=== PATIENT | male | born 1940 | race African-American/Black ===

== ENCOUNTER 2018-02-01 09:17 | Inpatient (IN) | payer MEDICARE, OTHER ==
[~2018-02-01] VITALS: Ht 177.8 cm; Wt 73.0 kg
[~2018-02-01 09:17] MED LIST: ASPI-630 PO; ATRO5DRO SL; DONE10TA7 PO; FOLI1TAB16 PO; HYDR12.58 PO; LEVO50TA5 PO; MEMA1CAP PO; MULT-246 PO; PHEN100C4 PO; PHEN50TA3 PO; TAMS0.4C2 PO
[2018-02-01 10:05] LABS: PROTHROMBIN TIME PATIENT 13.6 SEC (11.7-14.0)
[2018-02-01 10:06] LABS: BASO % 1 % (0-3); EOS % 1 % (0-3); HEMATOCRIT 39.5 % (39.0-53.0); HEMOGLOBIN 13.3 g/dL (13.0-17.5); LYMPH # 1.5 x10^3/uL (1.0-4.8); LYMPH % 30 % (24-48); MEAN CORPUSCULAR HEMOGLOBIN 32 pg (25-35); MEAN CORPUSCULAR HGB CONC 34 g/dL (31-37); MEAN CORPUSCULAR VOLUME 96 fL (79-100); MONO # 0.9 x10^3/uL (0.0-1.1); MONO % 18 % (0-9); NEUT # 2.6 x10^3uL (1.8-7.7); NEUT % 50 % (31-73); PLATELET COUNT 222 x10^3/uL (140-400); RED BLOOD COUNT 4.11 x10^6/uL (4.30-5.70); RED CELL DISTRIBUTION WIDTH 13.3 % (11.5-14.5); WHITE BLOOD COUNT 5.1 x10^3/uL (4.0-11.0)
[2018-02-01 10:10] LABS: CALCIUM 9.4 mg/dL (8.5-10.1); CREATININE 1.1 mg/dL (0.7-1.3); GFR 78.7; POTASSIUM 3.9 mmol/L (3.5-5.1)
[2018-02-01 10:12] LABS: BILIRUBIN,URINE NEGATIVE (NEG); CLARITY,URINE CLEAR; COLOR,URINE YELLOW; NITRITE,URINE POSITIVE (NEG); PH,URINE 5.5; PROTEIN,URINE NEGATIVE (NEG-TRACE)
[2018-02-01 10:16] LABS: ALBUMIN 3.4 g/dL (3.4-5.0); ALBUMIN/GLOBULIN RATIO 0.7 (1.0-1.7); MAGNESIUM 1.8 mg/dL (1.8-2.4); TOTAL BILIRUBIN 0.5 mg/dL (0.2-1.0); TOTAL PROTEIN 8.4 g/dL (6.4-8.2)
[2018-02-01 10:29] LABS: CREATINE KINASE 69 U/L (39-308)
--- NOTE | 2018-02-01 10:33 | RAD ---
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 Exposure: One or more of the following individualized dose reduction techniques were utilized for this examination: 1. Automated exposure control 2. Adjustment of the mA and/or kV according to patient size 3. Use of iterative reconstruction technique. Findings: No acute intracranial hemorrhage is identified. There is again left frontal craniectomy defect and left frontal betty hole. There is again right transfrontal shunt, tip terminating near the midline in the anterior right lateral ventricle. There is similar mild third ventriculomegaly, also ex vacuo dilatation of the frontal horns bilaterally greater on the left as seen previously. There are again large areas of encephalomalacia with cortical involvement of the bilateral frontal lobes, also of the right temporal tip unchanged. There is also old lacunar infarct of the left anne radiata extending to basal ganglia and also the anterior right basal ganglia also unchanged. No acute intracranial hemorrhage is identified. There is again [id number] infratentorial involutional change. There is mild deviation of the septum pellucidum to the right as seen previously. Visualized paranasal sinuses are mostly aerated other than negligible patchy ethmoid mucosal thickening. Mastoid air cells are aerated. There is atherosclerotic calcification of the carotid siphons bilaterally. Impression: 1. Intracranial findings as stated are similar compared with the 2015 exam, large areas of encephalomalacia of the bilateral frontal lobes, also of the right temporal tip with cortical involvement. Electronically signed by: Chuck Hinkle MD (02/01/2018 10:30 AM) [id number]
[2018-02-01 10:37] LABS: WBC,URINE TNTC /HPF (0-4)
[2018-02-01 10:38] LABS: BACTERIA,URINE MODERATE /HPF (0-FEW); SQUAMOUS EPITHELIAL CELL,UR OCC /LPF
[2018-02-01 11:06] LABS: % BASOS 1 % (0-3); % LYMPHS 31 % (24-48); % MONOS 11 % (0-10); % SEGS 57 % (35-66)
[2018-02-01 11:07] LABS: PLT ESTIMATE ADEQUATE (ADEQUATE)
--- NOTE | 2018-02-01 11:19 | EKG ---
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
[2018-02-01] MEDS ORDERED: cefTRIAXone IV Push 1 GM VIAL. IVP ONE (11:45)
--- NOTE | 2018-02-01 11:50 | PHYS DOC ---
Past Medical History Past Medical History: Hypertension, Hypothyroid, UTI Additional Past Medical Histor: CV disease,salivary disorder,cognitive deficit, epilepsy,dementia Past Surgical History: Other Additional Past Surgical Histo: "HEAD SGRY" Alcohol Use: Heavy Drug Use: None Adult General Chief Complaint Chief Complaint: SEIZURE HPI HPI Patient is a 77 year old was brought here from the retirement due to concern for UTI symptom, because seizure activity. Patient has history of seizure disorder, he is on Keppra 750 twice a day. Patient had been having frequent seizure activity at the retirement, he was on 500 mg of Keppra twice a day, his Keppra level was checked recently. And it was 25. His Keppra dose was increased to 750 twice a day yesterday. He had his morning dose of Keppra already. Review of Systems Review of Systems Constitutional: Denies fever or chills [] Eyes: Denies change in visual acuity, redness, or eye pain [] HENT: Denies nasal congestion or sore throat [] Respiratory: Denies cough or shortness of breath [] Cardiovascular: No additional information not addressed in HPI [] GI: Denies abdominal pain, nausea, vomiting, bloody stools or diarrhea [] : frequent urination. Musculoskeletal: Denies back pain or joint pain [] Integument: Denies rash or skin lesions [] Neurologic: Positive for seizure activity Endocrine: Denies polyuria or polydipsia [] All other systems were reviewed and found to be within normal limits, except as documented in this note. Current Medications Current Medications Current Medications Medications (Trade) Dose Ordered Sig/Rebekah Start Time Stop Time Status Last Admin Dose Admin Ceftriaxone Sodium (Rocephin) 1 gm 1X ONCE 02/01/18 11:45 02/01/18 11:46 DC 02/01/18 12:27 1 GM Levetiracetam 1000 mg/Dextrose 110 ml @ 440 mls/hr 1X ONCE 02/01/18 12:00 02/01/18 12:00 DC Lorazepam (Ativan) 2 mg STK-MED ONCE 02/01/18 09:35 02/01/18 09:36 DC Ondansetron HCl (Zofran) 4 mg PRN Q8HRS PRN 02/01/18 12:30 02/02/18 12:29 Allergies Allergies Allergies Coded Allergies Type Severity Reaction Last Updated Verified Sulfa (Sulfonamide Antibiotics) Allergy Intermediate 11/29/13 No Physical Exam Physical Exam Constitutional: Well developed, well nourished, patient had several episode of focal seizure activities in the ER when he became unresponsive and his eye was deviated to the left side. HENT: Normocephalic, atraumatic, bilateral external ears normal, oropharynx moist, no oral exudates, nose normal. [] Eyes: PERRLA, EOMI, conjunctiva normal, no discharge. [] Neck: Normal range of motion, no tenderness, supple, no stridor. [] Cardiovascular:Heart rate regular rhythm, no murmur [] Lungs & Thorax: Bilateral breath sounds clear to auscultation [] Abdomen: Bowel sounds normal, soft, no tenderness, no masses, no pulsatile masses. [] Skin: Warm, dry, no erythema, no rash. [] Back: No tenderness, no CVA tenderness. [] Extremities: atraumatic, no swelling. Neurologic:Patient was awake, alert, answered questions appropriately. Psychologic: Affect normal, judgement normal, mood normal. [] Current Patient Data Vital Signs Vital Signs Date Time Temp Pulse Resp B/P (MAP) Pulse Ox O2 Delivery O2 Flow Rate FiO2 02/01/18 09:17 96.6 84 21 153/76 (101) 97 2.0 96.6 Lab Values Laboratory Tests Test 02/01/18 09:30 02/01/18 09:57 White Blood Count 5.1 x10^3/uL (4.0-11.0) Red Blood Count 4.11 x10^6/uL (4.30-5.70) L Hemoglobin 13.3 g/dL (13.0-17.5) Hematocrit 39.5 % (39.0-53.0) Mean Corpuscular Volume 96 fL (79-100) Mean Corpuscular Hemoglobin 32 pg (25-35) Mean Corpuscular Hemoglobin Concent 34 g/dL (31-37) Red Cell Distribution Width 13.3 % (11.5-14.5) Platelet Count 222 x10^3/uL (140-400) Neutrophils (%) (Auto) 50 % (31-73) Lymphocytes (%) (Auto) 30 % (24-48) Monocytes (%) (Auto) 18 % (0-9) H Eosinophils (%) (Auto) 1 % (0-3) Basophils (%) (Auto) 1 % (0-3) Neutrophils # (Auto) 2.6 x10^3uL (1.8-7.7) Lymphocytes # (Auto) 1.5 x10^3/uL (1.0-4.8) Monocytes # (Auto) 0.9 x10^3/uL (0.0-1.1) Eosinophils # (Auto) 0.0 x10^3/uL (0.0-0.7) Basophils # (Auto) 0.0 x10^3/uL (0.0-0.2) Segmented Neutrophils % 57 % (35-66) Lymphocytes % 31 % (24-48) Monocytes % 11 % (0-10) H Basophils % 1 % (0-3) Platelet Estimate Adequate (ADEQUATE) Large Platelets Occ Giant Platelets Occ Prothrombin Time 13.6 SEC (11.7-14.0) Prothrombin Time INR 1.1 (0.8-1.1) PTT 35 SEC (24-38) Sodium Level 140 mmol/L (136-145) Potassium Level 3.9 mmol/L (3.5-5.1) Chloride Level 104 mmol/L (98-107) Carbon Dioxide Level 24 mmol/L (21-32) Anion Gap 12 (6-14) Blood Urea Nitrogen 12 mg/dL (8-26) Creatinine 1.1 mg/dL (0.7-1.3) Estimated GFR (Cockcroft-Gault) 78.7 BUN/Creatinine Ratio 11 (6-20) Glucose Level 88 mg/dL (70-99) Calcium Level 9.4 mg/dL (8.5-10.1) Magnesium Level 1.8 mg/dL (1.8-2.4) Total Bilirubin 0.5 mg/dL (0.2-1.0) Aspartate Amino Transferase (AST) 20 U/L (15-37) Alanine Aminotransferase (ALT) 22 U/L (16-63) Alkaline Phosphatase 101 U/L (46-116) Creatine Kinase 69 U/L (39-308) Creatine Kinase MB (Mass) 0.8 ng/mL (0.0-3.6) Creatine Kinase MB Relative Index % (0-4) Troponin I Quantitative < 0.017 ng/mL (0.000-0.055) Total Protein 8.4 g/dL (6.4-8.2) H Albumin 3.4 g/dL (3.4-5.0) Albumin/Globulin Ratio 0.7 (1.0-1.7) L Urine Collection Type U cath Urine Color Yellow Urine Clarity Clear Urine pH 5.5 Urine Specific [place] 1.020 Urine Protein Negative mg/dL (NEG-TRACE) Urine Glucose (UA) Negative mg/dL (NEG) Urine Ketones (Stick) Negative mg/dL (NEG) Urine Blood Large (NEG) Urine Nitrite Positive (NEG) Urine Bilirubin Negative (NEG) Urine Urobilinogen Dipstick 1.0 mg/dL (0.2 mg/dL) Urine Leukocyte Esterase Large (NEG) Urine RBC 3-5 /HPF (0-2) Urine WBC Tntc /HPF (0-4) Urine Squamous Epithelial Cells Occ /LPF Urine Bacteria Moderate /HPF (0-FEW) Laboratory Tests 02/01/18 09:30 Laboratory Tests 02/01/18 09:30 EKG EKG EKG: SINUS RHYTHM, RATE OF 82 BPM, NO STEMI. Radiology/Procedures Radiology/Procedures [][facility] [address] [place] [address] IMAGING REPORT Signed PATIENT: SHIMA CANTU ACCOUNT: [id number] : 1940 LOCATION: ER AGE: 77 SEX: M EXAM STATUS: REG ER ORD. PHYSICIAN: BERT AQUINO DO REASON: RECURRENT SEIZURE, HX OF HOG COUNTER SHUNT PROCEDURE: CT HEAD WO CONTRAST CT HEAD WO CONTRAST History: Recurrent seizures, history HOG COUNTER shunt Comparison: February 28, 2014 Technique: Noncontrast CT imaging was performed of the head. Exposure: One or more of the following individualized dose reduction techniques were utilized for this examination: 1. Automated exposure control 2. Adjustment of the mA and/or kV according to patient size 3. Use of iterative reconstruction technique. Findings: No acute intracranial hemorrhage is identified. There is again left frontal craniectomy defect and left frontal betty hole. There is again right transfrontal shunt, tip terminating near the midline in the anterior right lateral ventricle. There is similar mild third ventriculomegaly, also ex vacuo dilatation of the frontal horns bilaterally greater on the left as seen previously. There are again large areas of encephalomalacia with cortical involvement of the bilateral frontal lobes, also of the right temporal tip unchanged. There is also old lacunar infarct of the left anne radiata extending to basal ganglia and also the anterior right basal ganglia also unchanged. No acute intracranial hemorrhage is identified. There is again [id number] infratentorial involutional change. There is mild deviation of the septum pellucidum to the right as seen previously. Visualized paranasal sinuses are mostly aerated other than negligible patchy ethmoid mucosal thickening. Mastoid air cells are aerated. There is atherosclerotic calcification of the carotid siphons bilaterally. Impression: 1. Intracranial findings as stated are similar compared with the 2015 exam, large areas of encephalomalacia of the bilateral frontal lobes, also of the right temporal tip with cortical involvement. Electronically signed by: Chuck Hinkle MD (02/01/2018 10:30 AM) [id number] Course & Med Decision Making Course & Med Decision Making Pertinent Labs and Imaging studies reviewed. (See chart for details) [] Dragon Disclaimer Dragon Disclaimer This electronic medical record was generated, in whole or in part, using a voice recognition dictation system. Departure Departure Impression: Primary Impression: Seizure Additional Impression: UTI (urinary tract infection) Disposition: ADMITTED INPATIENT Admitting Physician: Rosalinda Reed Condition: STABLE Referrals: ROSALINDA REED MD (PCP) Problem Qualifiers BERT AQUINO DO Feb 01, 2018 11:50
[2018-02-01] MEDS ORDERED: levETIRAcetam 1,000 MG in IV DEXTROSE 5% 100ML 100 ML IV ONE (12:00)
[2018-02-01] MEDS ORDERED: ONDANSETRON PF 4 MG/2 ML VIAL. IV PRN (12:30)
[2018-02-01 14:15] VITALS: BP 121/77
[2018-02-01] MEDS ORDERED: GUAI473L15 PO (16:02)
[2018-02-01] MEDS ORDERED: LEVE500T56 PO (16:02)
[2018-02-01] MEDS ORDERED: ACET325T9 PO (16:02)
[2018-02-01] MEDS ORDERED: ACETAMINOPHEN 325 MG TABLET. PO PRN (17:30)
[2018-02-01] MEDS ORDERED: MEMA10TA20 PO (17:43)
[2018-02-01] MEDS ORDERED: GUAI100L12 PO (17:43)
[2018-02-01] MEDS ORDERED: LEVE750T8 PO (17:43)
[2018-02-01] MEDS ORDERED: ERGO500027 PO (17:44)
--- NOTE | 2018-02-01 18:06 | PDOC ---
Provider Note Provider Note Patient seen. History and Physical dictated. See dictation# [id number] ROSALINDA NERI MD Feb 01, 2018 18:06
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
[2018-02-01 19:15] VITALS: BP 86/40
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
[2018-02-01] MEDS ORDERED: IV NORMAL SALINE 500ML BAG 500 ML IV ONE (20:45)
[2018-02-01] MEDS ORDERED: TAMSULOSIN 0.4 MG CAP.ER.24H. PO SCH (21:00)
[2018-02-01] MEDS: MEMANTINE 10 MG TABLET. PO SCH (21:17)
[2018-02-01] MEDS: levETIRAcetam 500 MG TABLET PO SCH (21:17)
[2018-02-01] MEDS: DONEPEZIL HCL 10 MG TABLET. PO SCH (21:17)
[2018-02-01] MEDS: IV NORMAL SALINE 1000ML BAG 1,000 ML IV SCH (22:06)
[2018-02-01 23:15] VITALS: BP 104/83
[2018-02-02] VITALS (20 sets, daily range): BP systolic 90–128; BP diastolic 44–77
[2018-02-02] MEDS ORDERED: IV NORMAL SALINE 500ML BAG 250 ML IV ONE (04:00)
[2018-02-02] MEDS ORDERED: LACOSAMIDE 100 MG in IV DEXTROSE 5% 50 ML IV ONE (04:00)
[2018-02-02] MEDS: LEVOTHYROXINE 50 MCG TABLET PO SCH (06:00)
[2018-02-02] MEDS ORDERED: hydroCHLOROthiazide 12.5 MG CAPSULE PO SCH (09:00)
[2018-02-02] MEDS: FOLIC ACID 1 MG TABLET. PO SCH (09:00)
[2018-02-02] MEDS: levETIRAcetam 500 MG TABLET PO SCH (09:00)
[2018-02-02] MEDS: ASPIRIN CHEWABLE 81 MG TABLET. PO SCH (09:00)
[2018-02-02] MEDS: MULTIVITAMIN with MINERAL TABLET. PO SCH (09:00)
[2018-02-02] MEDS: MEMANTINE 10 MG TABLET. PO SCH ×2 (09:00→22:41)
[2018-02-02] MEDS: LACTOBACILLUS RHAMNOSUS GG 1 CAPSULE. PO SCH ×2 (09:00→22:41)
[2018-02-02 09:27] LABS: CALCIUM 8.7 mg/dL (8.5-10.1); CREATININE 1.2 mg/dL (0.7-1.3); GFR 71.2; MAGNESIUM 1.7 mg/dL (1.8-2.4)
[2018-02-02 09:42] LABS: BASO % 1 % (0-3); EOS # 0.1 x10^3/uL (0.0-0.7); EOS % 1 % (0-3); HEMATOCRIT 36.8 % (39.0-53.0); HEMOGLOBIN 12.5 g/dL (13.0-17.5); LYMPH # 1.2 x10^3/uL (1.0-4.8); LYMPH % 20 % (24-48); MEAN CORPUSCULAR HEMOGLOBIN 33 pg (25-35); MEAN CORPUSCULAR HGB CONC 34 g/dL (31-37); MEAN CORPUSCULAR VOLUME 96 fL (79-100); MONO % 16 % (0-9); NEUT # 3.7 x10^3uL (1.8-7.7); NEUT % 62 % (31-73); PLATELET COUNT 203 x10^3/uL (140-400); RED BLOOD COUNT 3.83 x10^6/uL (4.30-5.70); RED CELL DISTRIBUTION WIDTH 13.2 % (11.5-14.5)
--- NOTE | 2018-02-02 09:50 | RAD ---
CHEST PA LATERAL CLINICAL INDICATION: shunt series COMPARISON: None FINDINGS: Heart is normal in size. Lungs are hyperinflated and hyperlucent. No pneumothorax or pleural effusion. Mild bibasilar interstitial opacities are seen. The tip of the ventricular shunt is seen projecting over the right mediastinal level of T4 vertebral body. Status post ORIF of right clavicle or fracture. Otherwise, visualized bony thorax is within normal limits. IMPRESSION: 1. Findings of COPD. 2. Bibasilar patchy opacities are seen which may be secondary to interstitial infiltrates, subsegmental atelectasis aspiration or or pneumonia. 3. The tip of the ventricular shunt is located in the right aspect of the mid mediastinum at the level of T4 vertebral body. Electronically signed by: Suraj Reed DO (02/02/2018 9:46 AM) [facility]
[2018-02-02] MEDS: LACOSAMIDE 100 MG in IV DEXTROSE 5% 50 ML IV SCH ×2 (09:51→22:01)
[2018-02-02] MEDS: IV NORMAL SALINE 1000ML BAG 1,000 ML IV SCH ×2 (09:52→18:09)
--- NOTE | 2018-02-02 09:53 | RAD ---
Indication: Shunt series TECHNIQUE: AP and lateral views of the skull and KUB. COMPARISON: None FINDINGS: Ventricular peritoneal shunt is seen traversing the right posterolateral neck soft tissue. The proximal tip of the projects at the level of third ventricle. The paranasal sinuses are clear. No abnormally dilated bowel loops. Visualized bones are within normal limits. IMPRESSION: The tip of the ventricular shunt terminates in the mediastinum. Electronically signed by: Suraj Reed DO (02/02/2018 9:48 AM) [facility]
--- NOTE | 2018-02-02 11:11 | PDOC ---
IM PROGRESS NOTES- Subjective Subjective Patient was transferred to ICU because of hypotension and recurrent seizures. Patient was given IV Vimpat yesterday night.. Patient is not responsive verbally this morning although staff said that he did talk to them earlier. Staff feels that they cannot feed the patient and he may not be able to take his medications. His swelling of the lips is improving but they feel that the tongue is still enlarged. Able to get any information from the patient. Objective Vitals Vital Signs Date Time Temp Pulse Resp B/P (MAP) Pulse Ox O2 Delivery O2 Flow Rate FiO2 02/02/18 09:00 73 20 120/55 (76) 94 Nasal Cannula 2.0 02/02/18 08:00 98.4 98.4 Input & Output Intake and Output 02/02/18 07:01 Intake Total 0 ml Balance 0 ml Intake Oral 0 ml # Voids 7 # Bowel Movements 1 Physical Exam Physical Exam GENERAL: The patient is very sleepy, EYES: Partial exam, sleepy, unremarkable. SKIN: Warm and dry. There is no cyanosis. NECK: Decreased range of motion. JVP normal. No thyromegaly. HEENT: Oral cavity: The patient has enlarged hypertrophied lips, especially the lower lips. He has some drooling. His speech is not clear. He has some involuntary abnormal movements of the perioral area. LUNGS: Decreased breath sounds at bases. CARDIOVASCULAR: S1, S2 regular. ABDOMEN: Soft, nontender, bowel sounds present. EXTREMITIES: No edema. CENTRAL NERVOUS SYSTEM: The patient is sleepy, but restless. Moves extremities. No seizure activity noted at this time. He has generalized weakness or residual deficits from previous CVA. Unable to follow all the commands, nonverbal at this time. Labs Laboratory Tests Test 02/01/18 09:30 02/01/18 09:57 02/02/18 04:34 02/02/18 08:40 White Blood Count 5.1 x10^3/uL (4.0-11.0) 6.0 x10^3/uL (4.0-11.0) Red Blood Count 4.11 x10^6/uL (4.30-5.70) 3.83 x10^6/uL (4.30-5.70) Hemoglobin 13.3 g/dL (13.0-17.5) 12.5 g/dL (13.0-17.5) Hematocrit 39.5 % (39.0-53.0) 36.8 % (39.0-53.0) Mean Corpuscular Volume 96 fL (79-100) 96 fL (79-100) Mean Corpuscular Hemoglobin 32 pg (25-35) 33 pg (25-35) Mean Corpuscular Hemoglobin Concent 34 g/dL (31-37) 34 g/dL (31-37) Red Cell Distribution Width 13.3 % (11.5-14.5) 13.2 % (11.5-14.5) Platelet Count 222 x10^3/uL (140-400) 203 x10^3/uL (140-400) Neutrophils (%) (Auto) 50 % (31-73) 62 % (31-73) Lymphocytes (%) (Auto) 30 % (24-48) 20 % (24-48) Monocytes (%) (Auto) 18 % (0-9) 16 % (0-9) Eosinophils (%) (Auto) 1 % (0-3) 1 % (0-3) Basophils (%) (Auto) 1 % (0-3) 1 % (0-3) Neutrophils # (Auto) 2.6 x10^3uL (1.8-7.7) 3.7 x10^3uL (1.8-7.7) Lymphocytes # (Auto) 1.5 x10^3/uL (1.0-4.8) 1.2 x10^3/uL (1.0-4.8) Monocytes # (Auto) 0.9 x10^3/uL (0.0-1.1) 1.0 x10^3/uL (0.0-1.1) Eosinophils # (Auto) 0.0 x10^3/uL (0.0-0.7) 0.1 x10^3/uL (0.0-0.7) Basophils # (Auto) 0.0 x10^3/uL (0.0-0.2) 0.0 x10^3/uL (0.0-0.2) Segmented Neutrophils % 57 % (35-66) Lymphocytes % 31 % (24-48) Monocytes % 11 % (0-10) Basophils % 1 % (0-3) Platelet Estimate Adequate (ADEQUATE) Large Platelets Occ Giant Platelets Occ Prothrombin Time 13.6 SEC (11.7-14.0) Prothromb Time International Ratio 1.1 (0.8-1.1) Activated Partial Thromboplast Time 35 SEC (24-38) Sodium Level 140 mmol/L (136-145) 141 mmol/L (136-145) Potassium Level 3.9 mmol/L (3.5-5.1) 4.0 mmol/L (3.5-5.1) Chloride Level 104 mmol/L (98-107) 107 mmol/L (98-107) Carbon Dioxide Level 24 mmol/L (21-32) 25 mmol/L (21-32) Anion Gap 12 (6-14) 9 (6-14) Blood Urea Nitrogen 12 mg/dL (8-26) 12 mg/dL (8-26) Creatinine 1.1 mg/dL (0.7-1.3) 1.2 mg/dL (0.7-1.3) Estimated GFR (Cockcroft-Gault) 78.7 71.2 BUN/Creatinine Ratio 11 (6-20) Glucose Level 88 mg/dL (70-99) 69 mg/dL (70-99) Calcium Level 9.4 mg/dL (8.5-10.1) 8.7 mg/dL (8.5-10.1) Magnesium Level 1.8 mg/dL (1.8-2.4) 1.7 mg/dL (1.8-2.4) Total Bilirubin 0.5 mg/dL (0.2-1.0) Aspartate Amino Transf (AST/SGOT) 20 U/L (15-37) Alanine Aminotransferase (ALT/SGPT) 22 U/L (16-63) Alkaline Phosphatase 101 U/L (46-116) Creatine Kinase 69 U/L (39-308) Creatine Kinase MB (Mass) 0.8 ng/mL (0.0-3.6) Creatine Kinase MB Relative Index % (0-4) Troponin I Quantitative < 0.017 ng/mL (0.000-0.055) Total Protein 8.4 g/dL (6.4-8.2) Albumin 3.4 g/dL (3.4-5.0) Albumin/Globulin Ratio 0.7 (1.0-1.7) Vitamin B12 Level 621 pg/mL (247-911) Thyroid Stimulating Hormone (TSH) 1.213 uIU/mL (0.358-3.74) Urine Collection Type U cath Urine Color Yellow Urine Clarity Clear Urine pH 5.5 Urine Specific [place] 1.020 Urine Protein Negative mg/dL (NEG-TRACE) Urine Glucose (UA) Negative mg/dL (NEG) Urine Ketones (Stick) Negative mg/dL (NEG) Urine Blood Large (NEG) Urine Nitrite Positive (NEG) Urine Bilirubin Negative (NEG) Urine Urobilinogen Dipstick 1.0 mg/dL (0.2 mg/dL) Urine Leukocyte Esterase Large (NEG) Urine RBC 3-5 /HPF (0-2) Urine WBC Tntc /HPF (0-4) Urine Squamous Epithelial Cells Occ /LPF Urine Bacteria Moderate /HPF (0-FEW) Glucose (Fingerstick) 73 mg/dL (70-99) Laboratory Tests Test 02/02/18 04:34 02/02/18 08:40 Glucose (Fingerstick) 73 mg/dL (70-99) White Blood Count 6.0 x10^3/uL (4.0-11.0) Red Blood Count 3.83 x10^6/uL (4.30-5.70) Hemoglobin 12.5 g/dL (13.0-17.5) Hematocrit 36.8 % (39.0-53.0) Mean Corpuscular Volume 96 fL (79-100) Mean Corpuscular Hemoglobin 33 pg (25-35) Mean Corpuscular Hemoglobin Concent 34 g/dL (31-37) Red Cell Distribution Width 13.2 % (11.5-14.5) Platelet Count 203 x10^3/uL (140-400) Neutrophils (%) (Auto) 62 % (31-73) Lymphocytes (%) (Auto) 20 % (24-48) Monocytes (%) (Auto) 16 % (0-9) Eosinophils (%) (Auto) 1 % (0-3) Basophils (%) (Auto) 1 % (0-3) Neutrophils # (Auto) 3.7 x10^3uL (1.8-7.7) Lymphocytes # (Auto) 1.2 x10^3/uL (1.0-4.8) Monocytes # (Auto) 1.0 x10^3/uL (0.0-1.1) Eosinophils # (Auto) 0.1 x10^3/uL (0.0-0.7) Basophils # (Auto) 0.0 x10^3/uL (0.0-0.2) Sodium Level 141 mmol/L (136-145) Potassium Level 4.0 mmol/L (3.5-5.1) Chloride Level 107 mmol/L (98-107) Carbon Dioxide Level 25 mmol/L (21-32) Anion Gap 9 (6-14) Blood Urea Nitrogen 12 mg/dL (8-26) Creatinine 1.2 mg/dL (0.7-1.3) Estimated GFR (Cockcroft-Gault) 71.2 Glucose Level 69 mg/dL (70-99) Calcium Level 8.7 mg/dL (8.5-10.1) Magnesium Level 1.7 mg/dL (1.8-2.4) Meds Current Medications Acetaminophen (Tylenol) 650 mg PRN Q4HRS PRN PO MILD PAIN / TEMP Last administered on 02/01/18at 21:17; Start 02/01/18 at 17:30 Aspirin (Children'S Aspirin) 81 mg DAILY PO ; Start 02/02/18 at 09:00 Ceftriaxone Sodium (Rocephin) 1 gm 1X ONCE IVP Last administered on at 12:27; Start 02/01/18 at 11:45; Stop 02/01/18 at 11:46; Status DC Ceftriaxone Sodium (Rocephin) 1 gm Q24H IVP ; Start 02/02/18 at 12:00 Donepezil HCl (Aricept) 10 mg QHS PO Last administered on 02/01/18at 21:17; Start 02/01/18 at 21:00 Folic Acid (Folic Acid) 1 mg DAILY PO ; Start 02/02/18 at 09:00 Hydrochlorothiazide (Microzide) 12.5 mg DAILY PO ; Start 02/02/18 at 09:00; Stop 02/02/18 at 09:00; Status DC Lacosamide 100 mg/ Dextrose 60 ml @ 120 mls/hr 1X ONCE IV Last administered on 02/02/18at 03:56; Start 02/02/18 at 04:00; Stop 02/02/18 at 04:29; Status DC Lacosamide 100 mg/ Dextrose 60 ml @ 120 mls/hr BID IV Last administered on at 09:51; Start 02/02/18 at 09:00 Lactobacillus Rhamnosus (Culturelle) 1 cap BID PO ; Start 02/02/18 at 09:00 Levetiracetam (Keppra) 1,000 mg BID PO Last administered on 02/01/18at 21:17; Start 02/01/18 at 21:00 Levetiracetam 1000 mg/Dextrose 110 ml @ 440 mls/hr 1X ONCE IV ; Start at 12:00; Stop 02/01/18 at 12:00; Status DC Levothyroxine Sodium (Synthroid) 50 mcg DAILY06 PO ; Start 02/02/18 at 06:00 Lorazepam (Ativan) 1 mg 1X ONCE IV Last administered on 02/01/18at 13:21; Start 02/01/18 at 13:30; Stop 02/01/18 at 13:31; Status DC Memantine (Namenda) 10 mg BID PO Last administered on 02/01/18at 21:17; Start 02/01/18 at 21:00 Multivitamins (Thera M Plus) 1 tab DAILY PO ; Start 02/02/18 at 09:00 Ondansetron HCl (Zofran) 4 mg PRN Q8HRS PRN IV NAUSEA/VOMITING; Start at 12:30; Stop 02/02/18 at 12:29 Sodium Chloride 250 ml @ 250 mls/hr 1X ONCE IV ; Start 02/02/18 at 04:00; Stop 02/02/18 at 04:59; Status DC Sodium Chloride 500 ml @ 0 mls/hr 1X ONCE IV Last administered on 02/01/18at 20:45; Start 02/01/18 at 20:45; Stop 02/01/18 at 20:46; Status DC Sodium Chloride 1,000 ml @ 100 mls/hr Q10H IV Last administered on 02/02/18at 09:52; Start 02/01/18 at 20:45 Tamsulosin HCl (Flomax) 0.4 mg HS PO Last administered on 02/01/18at 21:17; Start 02/01/18 at 21:00; Stop 02/02/18 at 08:02; Status DC Assessment Assessment 1. Seizure disorder, not controlled. 2. Urinary tract infection. 3. Hypertension. 4. Old cerebrovascular accident. 5. Dementia. 6. Osteoarthritis. 7. Benign prostatic hypertrophy. 8. Hypothyroidism. 9. Hypomagnesemia 10. Acute hypotension likely due to seizures and hypovolemia. PLAN: Keppra dose has been increased to [address] Ibarra for Neurology evaluation and management. Continue IV Rocephin and obtain urine culture. Check labs in a.m. including magnesium level. Continue seizure precautions. Prognosis of this patient is poor due to her multiple medical problems, CT scan of head showed large areas of encephalomalacia of the bilateral frontal lobes, also of the right temporal tip with cortical involvement. There is not new compared to the CAT scan in 2018. For details, please refer to the orders. Hypotension- continue IV fluids. Check for sepsis. Chest x-ray shows bibasilar opacities. Consult . Blood pressure is improving. I will also consult Dr. Solano. Hypoglycemia- glucose is 69. Patient is not on any medications. Continue to monitor blood sugar. 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 Consult Dr. Degroot for neurosurgical evaluation and management. 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 I have asked the staff to call the neurologist again. Prognosis of this patient is poor. Plan Plan For more details regarding further plans, please refer to the orders. ROSALINDA NERI MD Feb 02, 2018 11:11
--- NOTE | 2018-02-02 11:27 | PDOC ---
Infectious Disease Note Vital Sign Vital Signs Vital Signs Date Time Temp Pulse Resp B/P (MAP) Pulse Ox O2 Delivery O2 Flow Rate FiO2 02/02/18 09:00 73 20 120/55 (76) 94 Nasal Cannula 2.0 02/02/18 08:00 98.4 98.4 Labs Lab Laboratory Tests Test 02/02/18 04:34 02/02/18 08:40 Glucose (Fingerstick) 73 mg/dL (70-99) White Blood Count 6.0 x10^3/uL (4.0-11.0) Red Blood Count 3.83 x10^6/uL (4.30-5.70) Hemoglobin 12.5 g/dL (13.0-17.5) Hematocrit 36.8 % (39.0-53.0) Mean Corpuscular Volume 96 fL (79-100) Mean Corpuscular Hemoglobin 33 pg (25-35) Mean Corpuscular Hemoglobin Concent 34 g/dL (31-37) Red Cell Distribution Width 13.2 % (11.5-14.5) Platelet Count 203 x10^3/uL (140-400) Neutrophils (%) (Auto) 62 % (31-73) Lymphocytes (%) (Auto) 20 % (24-48) Monocytes (%) (Auto) 16 % (0-9) Eosinophils (%) (Auto) 1 % (0-3) Basophils (%) (Auto) 1 % (0-3) Neutrophils # (Auto) 3.7 x10^3uL (1.8-7.7) Lymphocytes # (Auto) 1.2 x10^3/uL (1.0-4.8) Monocytes # (Auto) 1.0 x10^3/uL (0.0-1.1) Eosinophils # (Auto) 0.1 x10^3/uL (0.0-0.7) Basophils # (Auto) 0.0 x10^3/uL (0.0-0.2) Sodium Level 141 mmol/L (136-145) Potassium Level 4.0 mmol/L (3.5-5.1) Chloride Level 107 mmol/L (98-107) Carbon Dioxide Level 25 mmol/L (21-32) Anion Gap 9 (6-14) Blood Urea Nitrogen 12 mg/dL (8-26) Creatinine 1.2 mg/dL (0.7-1.3) Estimated GFR (Cockcroft-Gault) 71.2 Glucose Level 69 mg/dL (70-99) Calcium Level 8.7 mg/dL (8.5-10.1) Magnesium Level 1.7 mg/dL (1.8-2.4) CXR 1. Findings of COPD. 2. Bibasilar patchy opacities are seen which may be secondary to interstitial infiltrates, subsegmental atelectasis aspiration or or pneumonia. 3. The tip of the ventricular shunt is located in the right aspect of the mid mediastinum at the level of T4 vertebral body. 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 Chart reviewed in detail. Case discussed with TALENT BUYER. Agree with above plan. WALESKA ORONA APRN Feb 02, 2018 11:27 REJI THORPE MD Feb 02, 2018 20:08
[2018-02-02] MEDS ORDERED: MAGNESIUM SULFATE 2GM 50 ML IV ONE (11:30)
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
[2018-02-02] MEDS ORDERED: cefTRIAXone IV Push 1 GM VIAL. IVP SCH (12:00)
[2018-02-02] MEDS: levETIRAcetam 1,000 MG in IV DEXTROSE 5% 100ML 100 ML IV SCH ×2 (12:22→22:01)
[2018-02-02] MEDS: PIPERACILLIN/TAZOBACTAM 3.375 GM in IV NORMAL SALINE 50ML 50 ML IV SCH ×3 (12:23→23:46)
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
--- NOTE | 2018-02-02 13:09 | EKG ---
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
--- NOTE | 2018-02-02 13:24 | PDOC ---
PULMONARY PROGRESS NOTES Vitals Vital Signs Date Time Temp Pulse Resp B/P (MAP) Pulse Ox O2 Delivery O2 Flow Rate FiO2 02/02/18 13:00 83 13 116/67 (83) 94 Nasal Cannula 2.0 02/02/18 12:00 98.4 98.4 Labs Laboratory Tests Test 02/01/18 09:30 02/01/18 09:57 02/02/18 04:34 02/02/18 08:40 White Blood Count 5.1 x10^3/uL (4.0-11.0) 6.0 x10^3/uL (4.0-11.0) Red Blood Count 4.11 x10^6/uL (4.30-5.70) 3.83 x10^6/uL (4.30-5.70) Hemoglobin 13.3 g/dL (13.0-17.5) 12.5 g/dL (13.0-17.5) Hematocrit 39.5 % (39.0-53.0) 36.8 % (39.0-53.0) Mean Corpuscular Volume 96 fL (79-100) 96 fL (79-100) Mean Corpuscular Hemoglobin 32 pg (25-35) 33 pg (25-35) Mean Corpuscular Hemoglobin Concent 34 g/dL (31-37) 34 g/dL (31-37) Red Cell Distribution Width 13.3 % (11.5-14.5) 13.2 % (11.5-14.5) Platelet Count 222 x10^3/uL (140-400) 203 x10^3/uL (140-400) Neutrophils (%) (Auto) 50 % (31-73) 62 % (31-73) Lymphocytes (%) (Auto) 30 % (24-48) 20 % (24-48) Monocytes (%) (Auto) 18 % (0-9) 16 % (0-9) Eosinophils (%) (Auto) 1 % (0-3) 1 % (0-3) Basophils (%) (Auto) 1 % (0-3) 1 % (0-3) Neutrophils # (Auto) 2.6 x10^3uL (1.8-7.7) 3.7 x10^3uL (1.8-7.7) Lymphocytes # (Auto) 1.5 x10^3/uL (1.0-4.8) 1.2 x10^3/uL (1.0-4.8) Monocytes # (Auto) 0.9 x10^3/uL (0.0-1.1) 1.0 x10^3/uL (0.0-1.1) Eosinophils # (Auto) 0.0 x10^3/uL (0.0-0.7) 0.1 x10^3/uL (0.0-0.7) Basophils # (Auto) 0.0 x10^3/uL (0.0-0.2) 0.0 x10^3/uL (0.0-0.2) Segmented Neutrophils % 57 % (35-66) Lymphocytes % 31 % (24-48) Monocytes % 11 % (0-10) Basophils % 1 % (0-3) Platelet Estimate Adequate (ADEQUATE) Large Platelets Occ Giant Platelets Occ Prothrombin Time 13.6 SEC (11.7-14.0) Prothromb Time International Ratio 1.1 (0.8-1.1) Activated Partial Thromboplast Time 35 SEC (24-38) Sodium Level 140 mmol/L (136-145) 141 mmol/L (136-145) Potassium Level 3.9 mmol/L (3.5-5.1) 4.0 mmol/L (3.5-5.1) Chloride Level 104 mmol/L (98-107) 107 mmol/L (98-107) Carbon Dioxide Level 24 mmol/L (21-32) 25 mmol/L (21-32) Anion Gap 12 (6-14) 9 (6-14) Blood Urea Nitrogen 12 mg/dL (8-26) 12 mg/dL (8-26) Creatinine 1.1 mg/dL (0.7-1.3) 1.2 mg/dL (0.7-1.3) Estimated GFR (Cockcroft-Gault) 78.7 71.2 BUN/Creatinine Ratio 11 (6-20) Glucose Level 88 mg/dL (70-99) 69 mg/dL (70-99) Calcium Level 9.4 mg/dL (8.5-10.1) 8.7 mg/dL (8.5-10.1) Magnesium Level 1.8 mg/dL (1.8-2.4) 1.7 mg/dL (1.8-2.4) Total Bilirubin 0.5 mg/dL (0.2-1.0) Aspartate Amino Transf (AST/SGOT) 20 U/L (15-37) Alanine Aminotransferase (ALT/SGPT) 22 U/L (16-63) Alkaline Phosphatase 101 U/L (46-116) Creatine Kinase 69 U/L (39-308) Creatine Kinase MB (Mass) 0.8 ng/mL (0.0-3.6) Creatine Kinase MB Relative Index % (0-4) Troponin I Quantitative < 0.017 ng/mL (0.000-0.055) Total Protein 8.4 g/dL (6.4-8.2) Albumin 3.4 g/dL (3.4-5.0) Albumin/Globulin Ratio 0.7 (1.0-1.7) Vitamin B12 Level 621 pg/mL (247-911) Thyroid Stimulating Hormone (TSH) 1.213 uIU/mL (0.358-3.74) Urine Collection Type U cath Urine Color Yellow Urine Clarity Clear Urine pH 5.5 Urine Specific [place] 1.020 Urine Protein Negative mg/dL (NEG-TRACE) Urine Glucose (UA) Negative mg/dL (NEG) Urine Ketones (Stick) Negative mg/dL (NEG) Urine Blood Large (NEG) Urine Nitrite Positive (NEG) Urine Bilirubin Negative (NEG) Urine Urobilinogen Dipstick 1.0 mg/dL (0.2 mg/dL) Urine Leukocyte Esterase Large (NEG) Urine RBC 3-5 /HPF (0-2) Urine WBC Tntc /HPF (0-4) Urine Squamous Epithelial Cells Occ /LPF Urine Bacteria Moderate /HPF (0-FEW) Glucose (Fingerstick) 73 mg/dL (70-99) Test 02/02/18 11:40 Lactic Acid Level 1.5 mmol/L (0.4-2.0) Laboratory Tests Test 02/02/18 04:34 02/02/18 08:40 02/02/18 11:40 Glucose (Fingerstick) 73 mg/dL (70-99) White Blood Count 6.0 x10^3/uL (4.0-11.0) Red Blood Count 3.83 x10^6/uL (4.30-5.70) Hemoglobin 12.5 g/dL (13.0-17.5) Hematocrit 36.8 % (39.0-53.0) Mean Corpuscular Volume 96 fL (79-100) Mean Corpuscular Hemoglobin 33 pg (25-35) Mean Corpuscular Hemoglobin Concent 34 g/dL (31-37) Red Cell Distribution Width 13.2 % (11.5-14.5) Platelet Count 203 x10^3/uL (140-400) Neutrophils (%) (Auto) 62 % (31-73) Lymphocytes (%) (Auto) 20 % (24-48) Monocytes (%) (Auto) 16 % (0-9) Eosinophils (%) (Auto) 1 % (0-3) Basophils (%) (Auto) 1 % (0-3) Neutrophils # (Auto) 3.7 x10^3uL (1.8-7.7) Lymphocytes # (Auto) 1.2 x10^3/uL (1.0-4.8) Monocytes # (Auto) 1.0 x10^3/uL (0.0-1.1) Eosinophils # (Auto) 0.1 x10^3/uL (0.0-0.7) Basophils # (Auto) 0.0 x10^3/uL (0.0-0.2) Sodium Level 141 mmol/L (136-145) Potassium Level 4.0 mmol/L (3.5-5.1) Chloride Level 107 mmol/L (98-107) Carbon Dioxide Level 25 mmol/L (21-32) Anion Gap 9 (6-14) Blood Urea Nitrogen 12 mg/dL (8-26) Creatinine 1.2 mg/dL (0.7-1.3) Estimated GFR (Cockcroft-Gault) 71.2 Glucose Level 69 mg/dL (70-99) Calcium Level 8.7 mg/dL (8.5-10.1) Magnesium Level 1.7 mg/dL (1.8-2.4) Lactic Acid Level 1.5 mmol/L (0.4-2.0) Medications Active Scripts Medications Dose Route/Sig Max Daily Dose Days Date Category Vitamin D2 (Ergocalciferol (Vitamin D2)) 50,000 Unit Capsule 50,000 Unit PO QSA 02/01/18 Reported Guaifenesin 100 Mg/5 Ml Liquid 200 Mg PO PRN Q4HRS PRN 02/01/18 Reported Levetiracetam 750 Mg Tablet 750 Mg PO BID 02/01/18 Reported Memantine HCl 10 Mg Tablet 10 Mg PO BID 02/01/18 Reported Tylenol (Acetaminophen) 325 Mg Tablet 2 Tab PO PRN Q4HRS PRN 02/01/18 Reported Tamsulosin Hcl 0.4 Mg Cap.er.24h 1 Cap PO HS 11/27/13 Reported Multi-Vitamin Daily (Multivitamin) 1 Each Tablet 1 Each PO DAILY 11/27/13 Reported Levothyroxine Sodium 50 Mcg Tablet 1 Tab PO DAILY 11/27/13 Reported Hydrochlorothiazide Tablet (Hydrochlorothiazide) 12.5 Mg Tablet 1 Tab PO DAILY 11/27/13 Reported Folic Acid 1 Mg Tablet 1 Tab PO DAILY 11/27/13 Reported Donepezil Hcl 10 Mg Tablet 1 Tab PO HS 11/27/13 Reported Atropine Care (Atropine Sulfate) 5 Ml Drops 3 Drop SL BID 11/27/13 Reported Aspirin 81 Mg Tab.chew 1 Tab PO DAILY 11/27/13 Reported Impression . NOTE DICTATED ASPIRATION PNEUMONIA NPO START TUBE FEEDING THANKS JORGE LESLIE MD Feb 02, 2018 13:23
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
--- NOTE | 2018-02-02 14:37 | RAD ---
Indication: KUB for Dobbhoff placement. TECHNIQUE: Single AP view of the abdomen and pelvis COMPARISON: None FINDINGS: The first image demonstrates no evidence of Dobbhoff tube. Stomach is mildly distended with gas. No abnormally dilated bowel loops. Visualized bones are within normal limits. Image #2 demonstrates Dobbhoff tube to be curled in the distal esophagus. Image #3 demonstrates Dobbhoff tube with its tip in the body of the stomach. IMPRESSION: Dobbhoff tube with its tip in the body of the stomach. No abnormally dilated bowel loops suggest bowel obstruction. Electronically signed by: Suraj Reed DO (02/02/2018 2:34 PM) [facility]
--- NOTE | 2018-02-02 14:38 | RAD ---
Indication: KUB for Dobbhoff placement. TECHNIQUE: Single AP view of the abdomen and pelvis COMPARISON: None FINDINGS: The first image demonstrates no evidence of Dobbhoff tube. Stomach is mildly distended with gas. No abnormally dilated bowel loops. Visualized bones are within normal limits. Image #2 demonstrates Dobbhoff tube to be curled in the distal esophagus. Image #3 demonstrates Dobbhoff tube with its tip in the body of the stomach. IMPRESSION: Dobbhoff tube with its tip in the body of the stomach. No abnormally dilated bowel loops suggest bowel obstruction. Electronically signed by: Suraj Reed DO (02/02/2018 2:34 PM) [facility]
--- NOTE | 2018-02-02 22:03 | RAD ---
Supine abdomen. HISTORY: Dobbhoff placement Single view was taken lower chest and upper abdomen. There is a Dobbhoff tube in the stomach. There is hazy atelectasis or infiltrate in the left lung base. There is respiratory motion. IMPRESSION: 1. Dobbhoff tube in the stomach. Electronically signed by: Will Aguayo MD (02/02/2018 9:59 PM) [facility]
[2018-02-02] MEDS: DONEPEZIL HCL 10 MG TABLET. PO SCH (22:41)
[2018-02-03] VITALS (22 sets, daily range): BP systolic 86–140; BP diastolic 40–76
[2018-02-03] MEDS: LEVOTHYROXINE 50 MCG TABLET PO SCH (06:00)
[2018-02-03] MEDS: PIPERACILLIN/TAZOBACTAM 3.375 GM in IV NORMAL SALINE 50ML 50 ML IV SCH ×3 (06:00→18:12)
[2018-02-03] MEDS: FOLIC ACID 1 MG TABLET. PO SCH (08:42)
[2018-02-03] MEDS: LACTOBACILLUS RHAMNOSUS GG 1 CAPSULE. PO SCH ×2 (08:42→22:18)
[2018-02-03] MEDS: ASPIRIN CHEWABLE 81 MG TABLET. PO SCH (08:42)
[2018-02-03] MEDS: MULTIVITAMIN with MINERAL TABLET. PO SCH (08:42)
[2018-02-03] MEDS: MEMANTINE 10 MG TABLET. PO SCH ×2 (08:42→22:18)
[2018-02-03] MEDS: levETIRAcetam 1,000 MG in IV DEXTROSE 5% 100ML 100 ML IV SCH ×2 (08:43→22:18)
[2018-02-03] MEDS: LACOSAMIDE 100 MG in IV DEXTROSE 5% 50 ML IV SCH (08:45)
--- NOTE | 2018-02-03 08:56 | PDOC ---
PULMONARY PROGRESS NOTES Subjective PT NOT IN DISTRESS Vitals Vital Signs Date Time Temp Pulse Resp B/P (MAP) Pulse Ox O2 Delivery O2 Flow Rate FiO2 02/03/18 08:00 98.4 92 15 118/62 (80) 99 Nasal Cannula 94.0 98.4 Lungs: Clear Cardiovascular: S1, S2 Abdomen: Soft Skin: Warm Labs Laboratory Tests Test 02/01/18 09:30 02/01/18 09:57 02/02/18 04:34 02/02/18 08:40 White Blood Count 5.1 x10^3/uL (4.0-11.0) 6.0 x10^3/uL (4.0-11.0) Red Blood Count 4.11 x10^6/uL (4.30-5.70) 3.83 x10^6/uL (4.30-5.70) Hemoglobin 13.3 g/dL (13.0-17.5) 12.5 g/dL (13.0-17.5) Hematocrit 39.5 % (39.0-53.0) 36.8 % (39.0-53.0) Mean Corpuscular Volume 96 fL (79-100) 96 fL (79-100) Mean Corpuscular Hemoglobin 32 pg (25-35) 33 pg (25-35) Mean Corpuscular Hemoglobin Concent 34 g/dL (31-37) 34 g/dL (31-37) Red Cell Distribution Width 13.3 % (11.5-14.5) 13.2 % (11.5-14.5) Platelet Count 222 x10^3/uL (140-400) 203 x10^3/uL (140-400) Neutrophils (%) (Auto) 50 % (31-73) 62 % (31-73) Lymphocytes (%) (Auto) 30 % (24-48) 20 % (24-48) Monocytes (%) (Auto) 18 % (0-9) 16 % (0-9) Eosinophils (%) (Auto) 1 % (0-3) 1 % (0-3) Basophils (%) (Auto) 1 % (0-3) 1 % (0-3) Neutrophils # (Auto) 2.6 x10^3uL (1.8-7.7) 3.7 x10^3uL (1.8-7.7) Lymphocytes # (Auto) 1.5 x10^3/uL (1.0-4.8) 1.2 x10^3/uL (1.0-4.8) Monocytes # (Auto) 0.9 x10^3/uL (0.0-1.1) 1.0 x10^3/uL (0.0-1.1) Eosinophils # (Auto) 0.0 x10^3/uL (0.0-0.7) 0.1 x10^3/uL (0.0-0.7) Basophils # (Auto) 0.0 x10^3/uL (0.0-0.2) 0.0 x10^3/uL (0.0-0.2) Segmented Neutrophils % 57 % (35-66) Lymphocytes % 31 % (24-48) Monocytes % 11 % (0-10) Basophils % 1 % (0-3) Platelet Estimate Adequate (ADEQUATE) Large Platelets Occ Giant Platelets Occ Prothrombin Time 13.6 SEC (11.7-14.0) Prothromb Time International Ratio 1.1 (0.8-1.1) Activated Partial Thromboplast Time 35 SEC (24-38) Sodium Level 140 mmol/L (136-145) 141 mmol/L (136-145) Potassium Level 3.9 mmol/L (3.5-5.1) 4.0 mmol/L (3.5-5.1) Chloride Level 104 mmol/L (98-107) 107 mmol/L (98-107) Carbon Dioxide Level 24 mmol/L (21-32) 25 mmol/L (21-32) Anion Gap 12 (6-14) 9 (6-14) Blood Urea Nitrogen 12 mg/dL (8-26) 12 mg/dL (8-26) Creatinine 1.1 mg/dL (0.7-1.3) 1.2 mg/dL (0.7-1.3) Estimated GFR (Cockcroft-Gault) 78.7 71.2 BUN/Creatinine Ratio 11 (6-20) Glucose Level 88 mg/dL (70-99) 69 mg/dL (70-99) Calcium Level 9.4 mg/dL (8.5-10.1) 8.7 mg/dL (8.5-10.1) Magnesium Level 1.8 mg/dL (1.8-2.4) 1.7 mg/dL (1.8-2.4) Total Bilirubin 0.5 mg/dL (0.2-1.0) Aspartate Amino Transf (AST/SGOT) 20 U/L (15-37) Alanine Aminotransferase (ALT/SGPT) 22 U/L (16-63) Alkaline Phosphatase 101 U/L (46-116) Creatine Kinase 69 U/L (39-308) Creatine Kinase MB (Mass) 0.8 ng/mL (0.0-3.6) Creatine Kinase MB Relative Index % (0-4) Troponin I Quantitative < 0.017 ng/mL (0.000-0.055) Total Protein 8.4 g/dL (6.4-8.2) Albumin 3.4 g/dL (3.4-5.0) Albumin/Globulin Ratio 0.7 (1.0-1.7) Vitamin B12 Level 621 pg/mL (247-911) Thyroid Stimulating Hormone (TSH) 1.213 uIU/mL (0.358-3.74) Urine Collection Type U cath Urine Color Yellow Urine Clarity Clear Urine pH 5.5 Urine Specific [place] 1.020 Urine Protein Negative mg/dL (NEG-TRACE) Urine Glucose (UA) Negative mg/dL (NEG) Urine Ketones (Stick) Negative mg/dL (NEG) Urine Blood Large (NEG) Urine Nitrite Positive (NEG) Urine Bilirubin Negative (NEG) Urine Urobilinogen Dipstick 1.0 mg/dL (0.2 mg/dL) Urine Leukocyte Esterase Large (NEG) Urine RBC 3-5 /HPF (0-2) Urine WBC Tntc /HPF (0-4) Urine Squamous Epithelial Cells Occ /LPF Urine Bacteria Moderate /HPF (0-FEW) Glucose (Fingerstick) 73 mg/dL (70-99) Test 02/02/18 11:40 Lactic Acid Level 1.5 mmol/L (0.4-2.0) Laboratory Tests Test 02/02/18 11:40 Lactic Acid Level 1.5 mmol/L (0.4-2.0) Medications Active Scripts Medications Dose Route/Sig Max Daily Dose Days Date Category Vitamin D2 (Ergocalciferol (Vitamin D2)) 50,000 Unit Capsule 50,000 Unit PO QSA 02/01/18 Reported Guaifenesin 100 Mg/5 Ml Liquid 200 Mg PO PRN Q4HRS PRN 02/01/18 Reported Levetiracetam 750 Mg Tablet 750 Mg PO BID 02/01/18 Reported Memantine HCl 10 Mg Tablet 10 Mg PO BID 02/01/18 Reported Tylenol (Acetaminophen) 325 Mg Tablet 2 Tab PO PRN Q4HRS PRN 02/01/18 Reported Tamsulosin Hcl 0.4 Mg Cap.er.24h 1 Cap PO HS 11/27/13 Reported Multi-Vitamin Daily (Multivitamin) 1 Each Tablet 1 Each PO DAILY 11/27/13 Reported Levothyroxine Sodium 50 Mcg Tablet 1 Tab PO DAILY 11/27/13 Reported Hydrochlorothiazide Tablet (Hydrochlorothiazide) 12.5 Mg Tablet 1 Tab PO DAILY 11/27/13 Reported Folic Acid 1 Mg Tablet 1 Tab PO DAILY 11/27/13 Reported Donepezil Hcl 10 Mg Tablet 1 Tab PO HS 11/27/13 Reported Atropine Care (Atropine Sulfate) 5 Ml Drops 3 Drop SL BID 11/27/13 Reported Aspirin 81 Mg Tab.chew 1 Tab PO DAILY 11/27/13 Reported Impression . IMPRESSION: 1. Aspiration pneumonia. 2. Abnormal x-ray secondary to above. 3. Urinary tract infection. 4. Seizure disorder. 5. Dementia. 6. Previous cerebrovascular accident. 7. Hypotension, possible sepsis. 8. Status post CHAIN SALES CONSULTANT shunt placement. Plan . WILL CONTINUE THE SAME 1. Continue Zosyn. 2. Maintain head of bed at 30 degrees. 3. Follow cultures. 4. Neurosurgery has been consulted for the possibility of malfunctioning of his CHAIN SALES CONSULTANT shunt. JORGE LESLIE MD Feb 03, 2018 08:56
--- NOTE | 2018-02-03 10:54 | PDOC ---
IM PROGRESS NOTES- Subjective Subjective Patient is not responsive and unable to do any systems review as he is not waking up. Patient was started on Dobbhoff tube feeding yesterday. Objective Vitals Vital Signs Date Time Temp Pulse Resp B/P (MAP) Pulse Ox O2 Delivery O2 Flow Rate FiO2 02/03/18 10:00 83 22 116/76 (89) 94 Nasal Cannula 4.0 02/03/18 08:00 98.4 98.4 Input & Output Intake and Output 02/03/18 07:01 Intake Total 2538 ml Output Total 0 ml Balance 2538 ml Intake Oral 0 ml IV Total 1330 ml Tube Feeding 137 ml Other 1071 ml Output Gastric Drainage Total 0 ml # Voids 6 # Bowel Movements 3 Physical Exam Physical Exam GENERAL: The patient is now responding. SKIN: Warm and dry. There is no cyanosis. NECK: Decreased range of motion. JVP normal. No thyromegaly. HEENT: Oral cavity: The patient has enlarged hypertrophied lips, especially the lower lips. He has some drooling. LUNGS: Decreased breath sounds at bases. CARDIOVASCULAR: S1, S2 regular. ABDOMEN: Soft, nontender, bowel sounds present. EXTREMITIES: No edema. CENTRAL NERVOUS SYSTEM: No seizure activity noted at this time. He has generalized weakness or residual deficits from previous CVA. He is not waking up at this time. Labs Laboratory Tests Test 02/02/18 04:34 02/02/18 08:40 02/02/18 11:40 Glucose (Fingerstick) 73 mg/dL (70-99) White Blood Count 6.0 x10^3/uL (4.0-11.0) Red Blood Count 3.83 x10^6/uL (4.30-5.70) Hemoglobin 12.5 g/dL (13.0-17.5) Hematocrit 36.8 % (39.0-53.0) Mean Corpuscular Volume 96 fL (79-100) Mean Corpuscular Hemoglobin 33 pg (25-35) Mean Corpuscular Hemoglobin Concent 34 g/dL (31-37) Red Cell Distribution Width 13.2 % (11.5-14.5) Platelet Count 203 x10^3/uL (140-400) Neutrophils (%) (Auto) 62 % (31-73) Lymphocytes (%) (Auto) 20 % (24-48) Monocytes (%) (Auto) 16 % (0-9) Eosinophils (%) (Auto) 1 % (0-3) Basophils (%) (Auto) 1 % (0-3) Neutrophils # (Auto) 3.7 x10^3uL (1.8-7.7) Lymphocytes # (Auto) 1.2 x10^3/uL (1.0-4.8) Monocytes # (Auto) 1.0 x10^3/uL (0.0-1.1) Eosinophils # (Auto) 0.1 x10^3/uL (0.0-0.7) Basophils # (Auto) 0.0 x10^3/uL (0.0-0.2) Sodium Level 141 mmol/L (136-145) Potassium Level 4.0 mmol/L (3.5-5.1) Chloride Level 107 mmol/L (98-107) Carbon Dioxide Level 25 mmol/L (21-32) Anion Gap 9 (6-14) Blood Urea Nitrogen 12 mg/dL (8-26) Creatinine 1.2 mg/dL (0.7-1.3) Estimated GFR (Cockcroft-Gault) 71.2 Glucose Level 69 mg/dL (70-99) Calcium Level 8.7 mg/dL (8.5-10.1) Magnesium Level 1.7 mg/dL (1.8-2.4) Lactic Acid Level 1.5 mmol/L (0.4-2.0) Laboratory Tests Test 02/02/18 11:40 Lactic Acid Level 1.5 mmol/L (0.4-2.0) Meds Current Medications Ceftriaxone Sodium (Rocephin) 1 gm Q24H IVP ; Start 02/02/18 at 12:00; Stop at 12:00; Status DC Levetiracetam 1000 mg/Dextrose 110 ml @ 440 mls/hr Q12HR IV Last administered on 02/03/18at 08:43; Start 02/02/18 at 12:00 Magnesium Sulfate 50 ml @ 25 mls/hr 1X ONCE IV Last administered on at 16:19; Start 02/02/18 at 11:30; Stop 02/02/18 at 13:29; Status DC Piperacillin Sod/ Tazobactam Sod 3.375 gm/Sodium Chloride 50 ml @ 100 mls/hr Q6HRS IV Last administered on 02/03/18at 06:00; Start 02/02/18 at 12:00 Assessment Assessment 1. Seizure disorder, not controlled. 2. Urinary tract infection. 3. Hypertension. 4. Old cerebrovascular accident. 5. Dementia. 6. Osteoarthritis. 7. Benign prostatic hypertrophy. 8. Hypothyroidism. 9. Hypomagnesemia 10. Acute hypotension likely due to seizures and hypovolemia. PLAN: Keppra dose has been increased to [address] Ibarra for Neurology evaluation and management. Continue IV Rocephin and obtain urine culture. Check labs in a.m. including magnesium level. Continue seizure precautions. Prognosis of this patient is poor due to her multiple medical problems, CT scan of head showed large areas of encephalomalacia of the bilateral frontal lobes, also of the right temporal tip with cortical involvement. There is not new compared to the CAT scan in 2018. For details, please refer to the orders. Hypotension- continue IV fluids. Check for sepsis. Chest x-ray shows bibasilar opacities. Consult . Blood pressure is improving. I will also consult Dr. Solano. Feeding started. Hypoglycemia- Patient is not on any medications. Continue to monitor blood sugar. Hypomagnesemia- replace magnesium Malposition/? Malfunction of the SPECIAL EDUCATION PROFESSIONAL shunt- is terminating and mediastinum. Consult Dr. Degroot for neurosurgical evaluation and management. Recurrent seizures-patient may be in status epilepticus. No seizures today. Prognosis of this patient is poor. Today's labs are pending. Plan Plan For more details regarding further plans, please refer to the orders. ROSALINDA NERI MD Feb 03, 2018 10:54
--- NOTE | 2018-02-03 12:40 | PDOC ---
Infectious Disease Note Subjective Subjective Feeling pretty good Denies pain/upset stomach or SOA No fevers last 24 hours Tube feedings via Dobbhoff Several convulsions so for today per RN Vital Sign Vital Signs Vital Signs Date Time Temp Pulse Resp B/P (MAP) Pulse Ox O2 Delivery O2 Flow Rate FiO2 02/03/18 12:00 98.1 84 20 130/72 (91) 91 Nasal Cannula 4.0 98.1 Physical Exam PHYSICAL EXAM GENERAL: Lying down, calm, mitts HEENT: Pupils equally round and small. Oral cavity moist. Edentulous. NECK: Supple. LUNGS: Diminished aeration right lower lung romano. Nonlabored HEART: S1 and S2. ABDOMEN: Nondistended. Bowel sounds present. Soft. No grimace or guarding to palpation. EXTREMITIES: No gross edema or cyanosis. SKIN: Warm without rash. NEUROLOGIC: Arouses to name. He answers simple questions of self appropriately. 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 Chart reviewed in detail. Case discussed with MECHANICAL ADJUSTER. Agree with above Plan WALESKA ORONA APRN Feb 03, 2018 12:40 REJI THORPE MD Feb 03, 2018 22:08
[2018-02-03 12:53] LABS: BASO % 1 % (0-3); EOS # 0.1 x10^3/uL (0.0-0.7); EOS % 2 % (0-3); HEMATOCRIT 35.1 % (39.0-53.0); HEMOGLOBIN 12.2 g/dL (13.0-17.5); LYMPH % 21 % (24-48); MEAN CORPUSCULAR HEMOGLOBIN 33 pg (25-35); MEAN CORPUSCULAR HGB CONC 35 g/dL (31-37); MEAN CORPUSCULAR VOLUME 95 fL (79-100); MONO # 0.7 x10^3/uL (0.0-1.1); MONO % 15 % (0-9); NEUT # 2.9 x10^3uL (1.8-7.7); NEUT % 62 % (31-73); PLATELET COUNT 213 x10^3/uL (140-400); WHITE BLOOD COUNT 4.6 x10^3/uL (4.0-11.0)
[2018-02-03 13:06] LABS: ALBUMIN 2.8 g/dL (3.4-5.0); ALBUMIN/GLOBULIN RATIO 0.6 (1.0-1.7); CALCIUM 8.7 mg/dL (8.5-10.1); CREATININE 1.3 mg/dL (0.7-1.3); GFR 64.9; POTASSIUM 3.5 mmol/L (3.5-5.1); TOTAL BILIRUBIN 0.6 mg/dL (0.2-1.0); TOTAL PROTEIN 7.6 g/dL (6.4-8.2)
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
[2018-02-03] MEDS ORDERED: LACOSAMIDE 150 MG in IV DEXTROSE 5% 50 ML IV SCH (21:00)
[2018-02-03] MEDS: DONEPEZIL HCL 10 MG TABLET. PO SCH (22:18)
[2018-02-04] VITALS (24 sets, daily range): BP systolic 79–122; BP diastolic 41–74
[2018-02-04] MEDS: PIPERACILLIN/TAZOBACTAM 3.375 GM in IV NORMAL SALINE 50ML 50 ML IV SCH ×4 (00:22→17:37)
[2018-02-04] MEDS: LEVOTHYROXINE 50 MCG TABLET PO SCH (06:11)
[2018-02-04] MEDS: LACOSAMIDE 200 MG in IV DEXTROSE 5% 50 ML IV SCH ×2 (06:16→20:44)
[2018-02-04 07:26] LABS: BASO % 1 % (0-3); EOS # 0.1 x10^3/uL (0.0-0.7); EOS % 1 % (0-3); HEMATOCRIT 36.4 % (39.0-53.0); HEMOGLOBIN 12.2 g/dL (13.0-17.5); LYMPH % 15 % (24-48); MEAN CORPUSCULAR HEMOGLOBIN 32 pg (25-35); MEAN CORPUSCULAR HGB CONC 34 g/dL (31-37); MEAN CORPUSCULAR VOLUME 96 fL (79-100); MONO # 1.1 x10^3/uL (0.0-1.1); MONO % 16 % (0-9); NEUT # 4.6 x10^3uL (1.8-7.7); NEUT % 67 % (31-73); PLATELET COUNT 209 x10^3/uL (140-400); RED BLOOD COUNT 3.78 x10^6/uL (4.30-5.70); RED CELL DISTRIBUTION WIDTH 13.2 % (11.5-14.5); WHITE BLOOD COUNT 6.9 x10^3/uL (4.0-11.0)
[2018-02-04] MEDS ORDERED: PHENobarbital 65 MG/ML VIAL. IVP ONE (07:30)
[2018-02-04 07:39] LABS: ALBUMIN 2.8 g/dL (3.4-5.0); ALBUMIN/GLOBULIN RATIO 0.6 (1.0-1.7); CALCIUM 8.6 mg/dL (8.5-10.1); CREATININE 1.2 mg/dL (0.7-1.3); GFR 71.2; POTASSIUM 3.8 mmol/L (3.5-5.1); TOTAL BILIRUBIN 0.6 mg/dL (0.2-1.0); TOTAL PROTEIN 7.6 g/dL (6.4-8.2)
--- NOTE | 2018-02-04 08:08 | PDOC ---
Infectious Disease Note Subjective Subjective pt is cont to have seizure no n/v/d/fever ROS ROS as above pt is minimally responsive Vital Sign Vital Signs Vital Signs Date Time Temp Pulse Resp B/P (MAP) Pulse Ox O2 Delivery O2 Flow Rate FiO2 02/04/18 07:00 91 20 107/56 (73) 92 Nasal Cannula 5.0 02/04/18 04:00 97.7 97.7 Physical Exam PHYSICAL EXAM GENERAL: Lying down, calm, mitts HEENT: Pupils equally round and small. Oral cavity moist. Edentulous. NECK: Supple. LUNGS: Diminished aeration right lower lung romano. Nonlabored HEART: S1 and S2. ABDOMEN: Nondistended. Bowel sounds present. Soft. No grimace or guarding to palpation. EXTREMITIES: No gross edema or cyanosis. SKIN: Warm without rash. NEUROLOGIC: Arouses to name. PIV Labs Lab Laboratory Tests Test 02/03/18 12:42 02/04/18 07:12 White Blood Count 4.6 x10^3/uL (4.0-11.0) 6.9 x10^3/uL (4.0-11.0) Red Blood Count 3.70 x10^6/uL (4.30-5.70) 3.78 x10^6/uL (4.30-5.70) Hemoglobin 12.2 g/dL (13.0-17.5) 12.2 g/dL (13.0-17.5) Hematocrit 35.1 % (39.0-53.0) 36.4 % (39.0-53.0) Mean Corpuscular Volume 95 fL (79-100) 96 fL (79-100) Mean Corpuscular Hemoglobin 33 pg (25-35) 32 pg (25-35) Mean Corpuscular Hemoglobin Concent 35 g/dL (31-37) 34 g/dL (31-37) Red Cell Distribution Width 13.0 % (11.5-14.5) 13.2 % (11.5-14.5) Platelet Count 213 x10^3/uL (140-400) 209 x10^3/uL (140-400) Neutrophils (%) (Auto) 62 % (31-73) 67 % (31-73) Lymphocytes (%) (Auto) 21 % (24-48) 15 % (24-48) Monocytes (%) (Auto) 15 % (0-9) 16 % (0-9) Eosinophils (%) (Auto) 2 % (0-3) 1 % (0-3) Basophils (%) (Auto) 1 % (0-3) 1 % (0-3) Neutrophils # (Auto) 2.9 x10^3uL (1.8-7.7) 4.6 x10^3uL (1.8-7.7) Lymphocytes # (Auto) 1.0 x10^3/uL (1.0-4.8) 1.0 x10^3/uL (1.0-4.8) Monocytes # (Auto) 0.7 x10^3/uL (0.0-1.1) 1.1 x10^3/uL (0.0-1.1) Eosinophils # (Auto) 0.1 x10^3/uL (0.0-0.7) 0.1 x10^3/uL (0.0-0.7) Basophils # (Auto) 0.0 x10^3/uL (0.0-0.2) 0.0 x10^3/uL (0.0-0.2) Sodium Level 138 mmol/L (136-145) 139 mmol/L (136-145) Potassium Level 3.5 mmol/L (3.5-5.1) 3.8 mmol/L (3.5-5.1) Chloride Level 103 mmol/L (98-107) 103 mmol/L (98-107) Carbon Dioxide Level 25 mmol/L (21-32) 25 mmol/L (21-32) Anion Gap 10 (6-14) 11 (6-14) Blood Urea Nitrogen 12 mg/dL (8-26) 8 mg/dL (8-26) Creatinine 1.3 mg/dL (0.7-1.3) 1.2 mg/dL (0.7-1.3) Estimated GFR (Cockcroft-Gault) 64.9 71.2 BUN/Creatinine Ratio 9 (6-20) 7 (6-20) Glucose Level 85 mg/dL (70-99) 97 mg/dL (70-99) Calcium Level 8.7 mg/dL (8.5-10.1) 8.6 mg/dL (8.5-10.1) Total Bilirubin 0.6 mg/dL (0.2-1.0) 0.6 mg/dL (0.2-1.0) Aspartate Amino Transf (AST/SGOT) 20 U/L (15-37) 22 U/L (15-37) Alanine Aminotransferase (ALT/SGPT) 14 U/L (16-63) 15 U/L (16-63) Alkaline Phosphatase 73 U/L (46-116) 71 U/L (46-116) Total Protein 7.6 g/dL (6.4-8.2) 7.6 g/dL (6.4-8.2) Albumin 2.8 g/dL (3.4-5.0) 2.8 g/dL (3.4-5.0) Albumin/Globulin Ratio 0.6 (1.0-1.7) 0.6 (1.0-1.7) Micro Microbiology 02/02/18 Blood Culture - Preliminary, Resulted NO GROWTH AFTER 1 DAY 02/01/18 Urine Culture - Preliminary, Resulted 02/01/18 Urine Culture Result 1 (BREN) - Preliminary, Resulted Objective Assessment 1. Complicated urinary tract infection present on admission. G neg frantz 2. Bibasilar patchy opacities, possible aspiration. 3. Hypotension, responsive to IV fluids. 4. Seizure disorder, uncontrolled. 5. Excessive salivary excretion disorder. 6. SULFA ALLERGY. 7. Hypothyroidism. 8. Benign prostatic hypertrophy. 9. Dementia. 10. History of cerebrovascular accident. Plan Plan of Care Continue Zosyn Maintain aspiration precautions f/u cultures Monitor labs/temp Supportive care overall prognosis poor pt need to be DNR/DNI D/w AMBER DIAZ MD Feb 04, 2018 08:08
[2018-02-04] MEDS: levETIRAcetam 1,000 MG in IV DEXTROSE 5% 100ML 100 ML IV SCH ×2 (08:36→20:40)
[2018-02-04] MEDS: MULTIVITAMIN with MINERAL TABLET. PO SCH (09:00)
[2018-02-04] MEDS: MEMANTINE 10 MG TABLET. PO SCH ×2 (09:00→20:43)
[2018-02-04] MEDS: ASPIRIN CHEWABLE 81 MG TABLET. PO SCH (09:00)
[2018-02-04] MEDS: LACTOBACILLUS RHAMNOSUS GG 1 CAPSULE. PO SCH ×2 (09:00→20:40)
[2018-02-04] MEDS: FOLIC ACID 1 MG TABLET. PO SCH (09:00)
--- NOTE | 2018-02-04 09:00 | PDOC ---
PULMONARY PROGRESS NOTES Subjective PT NOT IN DISTRESS Vitals Vital Signs Date Time Temp Pulse Resp B/P (MAP) Pulse Ox O2 Delivery O2 Flow Rate FiO2 02/04/18 08:00 Nasal Cannula 5.0 02/04/18 08:00 86 21 110/57 (74) 96 02/04/18 04:00 97.7 97.7 Lungs: Clear Cardiovascular: S1, S2 Abdomen: Soft Skin: Warm Labs Laboratory Tests Test 02/02/18 11:40 02/03/18 12:42 02/04/18 07:12 Lactic Acid Level 1.5 mmol/L (0.4-2.0) White Blood Count 4.6 x10^3/uL (4.0-11.0) 6.9 x10^3/uL (4.0-11.0) Red Blood Count 3.70 x10^6/uL (4.30-5.70) 3.78 x10^6/uL (4.30-5.70) Hemoglobin 12.2 g/dL (13.0-17.5) 12.2 g/dL (13.0-17.5) Hematocrit 35.1 % (39.0-53.0) 36.4 % (39.0-53.0) Mean Corpuscular Volume 95 fL (79-100) 96 fL (79-100) Mean Corpuscular Hemoglobin 33 pg (25-35) 32 pg (25-35) Mean Corpuscular Hemoglobin Concent 35 g/dL (31-37) 34 g/dL (31-37) Red Cell Distribution Width 13.0 % (11.5-14.5) 13.2 % (11.5-14.5) Platelet Count 213 x10^3/uL (140-400) 209 x10^3/uL (140-400) Neutrophils (%) (Auto) 62 % (31-73) 67 % (31-73) Lymphocytes (%) (Auto) 21 % (24-48) 15 % (24-48) Monocytes (%) (Auto) 15 % (0-9) 16 % (0-9) Eosinophils (%) (Auto) 2 % (0-3) 1 % (0-3) Basophils (%) (Auto) 1 % (0-3) 1 % (0-3) Neutrophils # (Auto) 2.9 x10^3uL (1.8-7.7) 4.6 x10^3uL (1.8-7.7) Lymphocytes # (Auto) 1.0 x10^3/uL (1.0-4.8) 1.0 x10^3/uL (1.0-4.8) Monocytes # (Auto) 0.7 x10^3/uL (0.0-1.1) 1.1 x10^3/uL (0.0-1.1) Eosinophils # (Auto) 0.1 x10^3/uL (0.0-0.7) 0.1 x10^3/uL (0.0-0.7) Basophils # (Auto) 0.0 x10^3/uL (0.0-0.2) 0.0 x10^3/uL (0.0-0.2) Sodium Level 138 mmol/L (136-145) 139 mmol/L (136-145) Potassium Level 3.5 mmol/L (3.5-5.1) 3.8 mmol/L (3.5-5.1) Chloride Level 103 mmol/L (98-107) 103 mmol/L (98-107) Carbon Dioxide Level 25 mmol/L (21-32) 25 mmol/L (21-32) Anion Gap 10 (6-14) 11 (6-14) Blood Urea Nitrogen 12 mg/dL (8-26) 8 mg/dL (8-26) Creatinine 1.3 mg/dL (0.7-1.3) 1.2 mg/dL (0.7-1.3) Estimated GFR (Cockcroft-Gault) 64.9 71.2 BUN/Creatinine Ratio 9 (6-20) 7 (6-20) Glucose Level 85 mg/dL (70-99) 97 mg/dL (70-99) Calcium Level 8.7 mg/dL (8.5-10.1) 8.6 mg/dL (8.5-10.1) Total Bilirubin 0.6 mg/dL (0.2-1.0) 0.6 mg/dL (0.2-1.0) Aspartate Amino Transf (AST/SGOT) 20 U/L (15-37) 22 U/L (15-37) Alanine Aminotransferase (ALT/SGPT) 14 U/L (16-63) 15 U/L (16-63) Alkaline Phosphatase 73 U/L (46-116) 71 U/L (46-116) Total Protein 7.6 g/dL (6.4-8.2) 7.6 g/dL (6.4-8.2) Albumin 2.8 g/dL (3.4-5.0) 2.8 g/dL (3.4-5.0) Albumin/Globulin Ratio 0.6 (1.0-1.7) 0.6 (1.0-1.7) Laboratory Tests Test 02/03/18 12:42 02/04/18 07:12 White Blood Count 4.6 x10^3/uL (4.0-11.0) 6.9 x10^3/uL (4.0-11.0) Red Blood Count 3.70 x10^6/uL (4.30-5.70) 3.78 x10^6/uL (4.30-5.70) Hemoglobin 12.2 g/dL (13.0-17.5) 12.2 g/dL (13.0-17.5) Hematocrit 35.1 % (39.0-53.0) 36.4 % (39.0-53.0) Mean Corpuscular Volume 95 fL (79-100) 96 fL (79-100) Mean Corpuscular Hemoglobin 33 pg (25-35) 32 pg (25-35) Mean Corpuscular Hemoglobin Concent 35 g/dL (31-37) 34 g/dL (31-37) Red Cell Distribution Width 13.0 % (11.5-14.5) 13.2 % (11.5-14.5) Platelet Count 213 x10^3/uL (140-400) 209 x10^3/uL (140-400) Neutrophils (%) (Auto) 62 % (31-73) 67 % (31-73) Lymphocytes (%) (Auto) 21 % (24-48) 15 % (24-48) Monocytes (%) (Auto) 15 % (0-9) 16 % (0-9) Eosinophils (%) (Auto) 2 % (0-3) 1 % (0-3) Basophils (%) (Auto) 1 % (0-3) 1 % (0-3) Neutrophils # (Auto) 2.9 x10^3uL (1.8-7.7) 4.6 x10^3uL (1.8-7.7) Lymphocytes # (Auto) 1.0 x10^3/uL (1.0-4.8) 1.0 x10^3/uL (1.0-4.8) Monocytes # (Auto) 0.7 x10^3/uL (0.0-1.1) 1.1 x10^3/uL (0.0-1.1) Eosinophils # (Auto) 0.1 x10^3/uL (0.0-0.7) 0.1 x10^3/uL (0.0-0.7) Basophils # (Auto) 0.0 x10^3/uL (0.0-0.2) 0.0 x10^3/uL (0.0-0.2) Sodium Level 138 mmol/L (136-145) 139 mmol/L (136-145) Potassium Level 3.5 mmol/L (3.5-5.1) 3.8 mmol/L (3.5-5.1) Chloride Level 103 mmol/L (98-107) 103 mmol/L (98-107) Carbon Dioxide Level 25 mmol/L (21-32) 25 mmol/L (21-32) Anion Gap 10 (6-14) 11 (6-14) Blood Urea Nitrogen 12 mg/dL (8-26) 8 mg/dL (8-26) Creatinine 1.3 mg/dL (0.7-1.3) 1.2 mg/dL (0.7-1.3) Estimated GFR (Cockcroft-Gault) 64.9 71.2 BUN/Creatinine Ratio 9 (6-20) 7 (6-20) Glucose Level 85 mg/dL (70-99) 97 mg/dL (70-99) Calcium Level 8.7 mg/dL (8.5-10.1) 8.6 mg/dL (8.5-10.1) Total Bilirubin 0.6 mg/dL (0.2-1.0) 0.6 mg/dL (0.2-1.0) Aspartate Amino Transf (AST/SGOT) 20 U/L (15-37) 22 U/L (15-37) Alanine Aminotransferase (ALT/SGPT) 14 U/L (16-63) 15 U/L (16-63) Alkaline Phosphatase 73 U/L (46-116) 71 U/L (46-116) Total Protein 7.6 g/dL (6.4-8.2) 7.6 g/dL (6.4-8.2) Albumin 2.8 g/dL (3.4-5.0) 2.8 g/dL (3.4-5.0) Albumin/Globulin Ratio 0.6 (1.0-1.7) 0.6 (1.0-1.7) Medications Active Scripts Medications Dose Route/Sig Max Daily Dose Days Date Category Vitamin D2 (Ergocalciferol (Vitamin D2)) 50,000 Unit Capsule 50,000 Unit PO QSA 02/01/18 Reported Guaifenesin 100 Mg/5 Ml Liquid 200 Mg PO PRN Q4HRS PRN 02/01/18 Reported Levetiracetam 750 Mg Tablet 750 Mg PO BID 02/01/18 Reported Memantine HCl 10 Mg Tablet 10 Mg PO BID 02/01/18 Reported Tylenol (Acetaminophen) 325 Mg Tablet 2 Tab PO PRN Q4HRS PRN 02/01/18 Reported Tamsulosin Hcl 0.4 Mg Cap.er.24h 1 Cap PO HS 11/27/13 Reported Multi-Vitamin Daily (Multivitamin) 1 Each Tablet 1 Each PO DAILY 11/27/13 Reported Levothyroxine Sodium 50 Mcg Tablet 1 Tab PO DAILY 11/27/13 Reported Hydrochlorothiazide Tablet (Hydrochlorothiazide) 12.5 Mg Tablet 1 Tab PO DAILY 11/27/13 Reported Folic Acid 1 Mg Tablet 1 Tab PO DAILY 11/27/13 Reported Donepezil Hcl 10 Mg Tablet 1 Tab PO HS 11/27/13 Reported Atropine Care (Atropine Sulfate) 5 Ml Drops 3 Drop SL BID 11/27/13 Reported Aspirin 81 Mg Tab.chew 1 Tab PO DAILY 11/27/13 Reported Impression . IMPRESSION: 1. Aspiration pneumonia. 2. Abnormal x-ray secondary to above. 3. Urinary tract infection. 4. Seizure disorder. 5. Dementia. 6. Previous cerebrovascular accident. 7. Hypotension, possible sepsis. 8. Status post [employer] shunt placement. Plan . WILL CONTINUE THE SAME 1. Continue Zosyn. 2. Maintain head of bed at 30 degrees. 3. Follow cultures. 4. Neurosurgery has been consulted for the possibility of malfunctioning of his [employer] shunt. No change in mental status O2 N/C 4 liters continued seizures Palliative care consult JORGE LESLIE MD Feb 04, 2018 09:00
--- NOTE | 2018-02-04 11:32 | PDOC ---
IM PROGRESS NOTES- Subjective Subjective Patient is very sleepy but tries to speak 1 or 2 words. Speech is not clear. He was given phenobarbital earlier. Patient continues to have frequent seizures. Objective Vitals Vital Signs Date Time Temp Pulse Resp B/P (MAP) Pulse Ox O2 Delivery O2 Flow Rate FiO2 02/04/18 10:00 73 24 117/69 (85) 93 Nasal Cannula 5.0 02/04/18 09:00 98.5 98.5 Input & Output Intake and Output 02/04/18 07:01 Intake Total 1160 ml Output Total 0 ml Balance 1160 ml IV Total 460 ml Tube Feeding 400 ml Other 300 ml Gastric Drainage Total 0 ml # Voids 4 # Bowel Movements 3 Physical Exam Physical Exam GENERAL: The patient is very sleepy SKIN: Warm and dry. There is no cyanosis. NECK: Decreased range of motion. JVP normal. No thyromegaly. HEENT: Oral cavity: The patient has enlarged hypertrophied lips, especially the lower lips. LUNGS: Decreased breath sounds at bases. CARDIOVASCULAR: S1, S2 regular. ABDOMEN: Soft, nontender, bowel sounds present. EXTREMITIES: No edema. CENTRAL NERVOUS SYSTEM: No seizure activity noted at this time. He has generalized weakness or residual deficits from previous CVA. Labs Laboratory Tests Test 02/02/18 11:40 02/03/18 12:42 02/04/18 07:12 Lactic Acid Level 1.5 mmol/L (0.4-2.0) White Blood Count 4.6 x10^3/uL (4.0-11.0) 6.9 x10^3/uL (4.0-11.0) Red Blood Count 3.70 x10^6/uL (4.30-5.70) 3.78 x10^6/uL (4.30-5.70) Hemoglobin 12.2 g/dL (13.0-17.5) 12.2 g/dL (13.0-17.5) Hematocrit 35.1 % (39.0-53.0) 36.4 % (39.0-53.0) Mean Corpuscular Volume 95 fL (79-100) 96 fL (79-100) Mean Corpuscular Hemoglobin 33 pg (25-35) 32 pg (25-35) Mean Corpuscular Hemoglobin Concent 35 g/dL (31-37) 34 g/dL (31-37) Red Cell Distribution Width 13.0 % (11.5-14.5) 13.2 % (11.5-14.5) Platelet Count 213 x10^3/uL (140-400) 209 x10^3/uL (140-400) Neutrophils (%) (Auto) 62 % (31-73) 67 % (31-73) Lymphocytes (%) (Auto) 21 % (24-48) 15 % (24-48) Monocytes (%) (Auto) 15 % (0-9) 16 % (0-9) Eosinophils (%) (Auto) 2 % (0-3) 1 % (0-3) Basophils (%) (Auto) 1 % (0-3) 1 % (0-3) Neutrophils # (Auto) 2.9 x10^3uL (1.8-7.7) 4.6 x10^3uL (1.8-7.7) Lymphocytes # (Auto) 1.0 x10^3/uL (1.0-4.8) 1.0 x10^3/uL (1.0-4.8) Monocytes # (Auto) 0.7 x10^3/uL (0.0-1.1) 1.1 x10^3/uL (0.0-1.1) Eosinophils # (Auto) 0.1 x10^3/uL (0.0-0.7) 0.1 x10^3/uL (0.0-0.7) Basophils # (Auto) 0.0 x10^3/uL (0.0-0.2) 0.0 x10^3/uL (0.0-0.2) Sodium Level 138 mmol/L (136-145) 139 mmol/L (136-145) Potassium Level 3.5 mmol/L (3.5-5.1) 3.8 mmol/L (3.5-5.1) Chloride Level 103 mmol/L (98-107) 103 mmol/L (98-107) Carbon Dioxide Level 25 mmol/L (21-32) 25 mmol/L (21-32) Anion Gap 10 (6-14) 11 (6-14) Blood Urea Nitrogen 12 mg/dL (8-26) 8 mg/dL (8-26) Creatinine 1.3 mg/dL (0.7-1.3) 1.2 mg/dL (0.7-1.3) Estimated GFR (Cockcroft-Gault) 64.9 71.2 BUN/Creatinine Ratio 9 (6-20) 7 (6-20) Glucose Level 85 mg/dL (70-99) 97 mg/dL (70-99) Calcium Level 8.7 mg/dL (8.5-10.1) 8.6 mg/dL (8.5-10.1) Total Bilirubin 0.6 mg/dL (0.2-1.0) 0.6 mg/dL (0.2-1.0) Aspartate Amino Transf (AST/SGOT) 20 U/L (15-37) 22 U/L (15-37) Alanine Aminotransferase (ALT/SGPT) 14 U/L (16-63) 15 U/L (16-63) Alkaline Phosphatase 73 U/L (46-116) 71 U/L (46-116) Total Protein 7.6 g/dL (6.4-8.2) 7.6 g/dL (6.4-8.2) Albumin 2.8 g/dL (3.4-5.0) 2.8 g/dL (3.4-5.0) Albumin/Globulin Ratio 0.6 (1.0-1.7) 0.6 (1.0-1.7) Laboratory Tests Test 02/03/18 12:42 02/04/18 07:12 White Blood Count 4.6 x10^3/uL (4.0-11.0) 6.9 x10^3/uL (4.0-11.0) Red Blood Count 3.70 x10^6/uL (4.30-5.70) 3.78 x10^6/uL (4.30-5.70) Hemoglobin 12.2 g/dL (13.0-17.5) 12.2 g/dL (13.0-17.5) Hematocrit 35.1 % (39.0-53.0) 36.4 % (39.0-53.0) Mean Corpuscular Volume 95 fL (79-100) 96 fL (79-100) Mean Corpuscular Hemoglobin 33 pg (25-35) 32 pg (25-35) Mean Corpuscular Hemoglobin Concent 35 g/dL (31-37) 34 g/dL (31-37) Red Cell Distribution Width 13.0 % (11.5-14.5) 13.2 % (11.5-14.5) Platelet Count 213 x10^3/uL (140-400) 209 x10^3/uL (140-400) Neutrophils (%) (Auto) 62 % (31-73) 67 % (31-73) Lymphocytes (%) (Auto) 21 % (24-48) 15 % (24-48) Monocytes (%) (Auto) 15 % (0-9) 16 % (0-9) Eosinophils (%) (Auto) 2 % (0-3) 1 % (0-3) Basophils (%) (Auto) 1 % (0-3) 1 % (0-3) Neutrophils # (Auto) 2.9 x10^3uL (1.8-7.7) 4.6 x10^3uL (1.8-7.7) Lymphocytes # (Auto) 1.0 x10^3/uL (1.0-4.8) 1.0 x10^3/uL (1.0-4.8) Monocytes # (Auto) 0.7 x10^3/uL (0.0-1.1) 1.1 x10^3/uL (0.0-1.1) Eosinophils # (Auto) 0.1 x10^3/uL (0.0-0.7) 0.1 x10^3/uL (0.0-0.7) Basophils # (Auto) 0.0 x10^3/uL (0.0-0.2) 0.0 x10^3/uL (0.0-0.2) Sodium Level 138 mmol/L (136-145) 139 mmol/L (136-145) Potassium Level 3.5 mmol/L (3.5-5.1) 3.8 mmol/L (3.5-5.1) Chloride Level 103 mmol/L (98-107) 103 mmol/L (98-107) Carbon Dioxide Level 25 mmol/L (21-32) 25 mmol/L (21-32) Anion Gap 10 (6-14) 11 (6-14) Blood Urea Nitrogen 12 mg/dL (8-26) 8 mg/dL (8-26) Creatinine 1.3 mg/dL (0.7-1.3) 1.2 mg/dL (0.7-1.3) Estimated GFR (Cockcroft-Gault) 64.9 71.2 BUN/Creatinine Ratio 9 (6-20) 7 (6-20) Glucose Level 85 mg/dL (70-99) 97 mg/dL (70-99) Calcium Level 8.7 mg/dL (8.5-10.1) 8.6 mg/dL (8.5-10.1) Total Bilirubin 0.6 mg/dL (0.2-1.0) 0.6 mg/dL (0.2-1.0) Aspartate Amino Transf (AST/SGOT) 20 U/L (15-37) 22 U/L (15-37) Alanine Aminotransferase (ALT/SGPT) 14 U/L (16-63) 15 U/L (16-63) Alkaline Phosphatase 73 U/L (46-116) 71 U/L (46-116) Total Protein 7.6 g/dL (6.4-8.2) 7.6 g/dL (6.4-8.2) Albumin 2.8 g/dL (3.4-5.0) 2.8 g/dL (3.4-5.0) Albumin/Globulin Ratio 0.6 (1.0-1.7) 0.6 (1.0-1.7) Meds Current Medications Lacosamide 150 mg/ Dextrose 65 ml @ 120 mls/hr BID IV Last administered on at 22:18; Start 02/03/18 at 21:00; Stop 02/04/18 at 06:04; Status DC Lacosamide 200 mg/ Dextrose 70 ml @ 140 mls/hr BID IV Last administered on at 06:16; Start 02/04/18 at 07:00 Phenobarbital (Luminal) 100 mg 1X ONCE IVP Last administered on 02/04/18at 07: 48; Start 02/04/18 at 07:30; Stop 02/04/18 at 07:39; Status DC Assessment Assessment 1. Seizure disorder, not controlled. 2. Urinary tract infection. 3. Hypertension. 4. Old cerebrovascular accident. 5. Dementia. 6. Osteoarthritis. 7. Benign prostatic hypertrophy. 8. Hypothyroidism. 9. Hypomagnesemia 10. Acute hypotension likely due to seizures and hypovolemia. PLAN: Keppra dose has been increased to [address] Ibarra for Neurology evaluation and management. Continue IV Rocephin and obtain urine culture. Check labs in a.m. including magnesium level. Continue seizure precautions. Prognosis of this patient is poor due to her multiple medical problems, CT scan of head showed large areas of encephalomalacia of the bilateral frontal lobes, also of the right temporal tip with cortical involvement. There is not new compared to the CAT scan in 2018. For details, please refer to the orders. Hypotension- continue IV fluids. Check for sepsis. Chest x-ray shows bibasilar opacities. Consult . Blood pressure is improving. I will also consult Dr. Solano. Feeding started. Continue IV Zosyn Hypoglycemia- Patient is not on any medications. Continue to monitor blood sugar. 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 Consult Dr. Degroot for neurosurgical evaluation and management. Patient has not been seen by Dr. Fofana. Dr. Will mentions that patient had a shunt series but I do not see any order or reports for shunt series. This is discussed with the staff and she'll speak to Dr. Will. Recurrent seizures-patient may be in status epilepticus. No seizures today. Prognosis of this patient is poor. Discussed with the patient's son Hugo on phonecondition, treatment, options including intubation and induced coma, for seizure control but made them aware that he may be then difficult to extubate him. Plan Plan For more details regarding further plans, please refer to the orders. ROSALINDA NERI MD Feb 04, 2018 11:32
--- NOTE | 2018-02-04 12:15 | EEG ---
DATE OF SERVICE: 02/04/2018 EEG NUMBER: [id number]. OBJECTIVE: The patient is a 77-year-old male with frequent seizure activity. DESCRIPTION: This is a digital study. Electrodes are placed according to the international 10-20 system. Bipolar and referential montages are available. Activation procedures typically include hyperventilation and intermittent photic stimulation. The waking background consists of 4-5 Hz, 50-100 microvolt activity. Slowing was observed over the left hemisphere. Frequent seizure activity is observed during the recording arising with rhythmic sharp activity over the left hemisphere with phase reversal, most prominent at electrode F7. No normal sleep patterns are seen. Hyperventilation is not performed. Intermittent photic stimulation is noncontributory. IMPRESSION: This electroencephalogram with the patient in obtunded state is abnormal because of an epileptic disturbance of cerebral activity arising over the left hemisphere, particularly the left frontal lobe. Thank you for letting us help with the patient's care. OLU VILLAVICENCIO MD DR: BEVERLEY/forest JOB#: [id number] / [id number] grecia NERI DR
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
[2018-02-04] MEDS: PHENobarbital 65 MG/ML VIAL. IVP SCH ×2 (14:07→20:44)
[2018-02-04] MEDS: DONEPEZIL HCL 10 MG TABLET. PO SCH (20:40)
[2018-02-04] MEDS: HYDROcodone/APAP 7.5/325MG 1 TAB TABLET PO PRN (22:05)
[2018-02-05] VITALS (24 sets, daily range): BP systolic 74–141; BP diastolic 41–66
[2018-02-05] MEDS: PIPERACILLIN/TAZOBACTAM 3.375 GM in IV NORMAL SALINE 50ML 50 ML IV SCH ×5 (00:17→23:40)
[2018-02-05] MEDS: HYDROcodone/APAP 7.5/325MG 1 TAB TABLET PO PRN (02:27)
[2018-02-05] MEDS ORDERED: MORPHINE SULFATE 4 MG/ML VIAL. IV PRN (06:30)
[2018-02-05] MEDS: PHENobarbital 65 MG/ML VIAL. IVP SCH ×3 (06:36→21:53)
[2018-02-05] MEDS: LEVOTHYROXINE 50 MCG TABLET PO SCH (06:36)
[2018-02-05 06:53] LABS: BASO % 1 % (0-3); EOS # 0.1 x10^3/uL (0.0-0.7); EOS % 2 % (0-3); HEMATOCRIT 35.7 % (39.0-53.0); HEMOGLOBIN 12.3 g/dL (13.0-17.5); LYMPH # 1.2 x10^3/uL (1.0-4.8); LYMPH % 21 % (24-48); MEAN CORPUSCULAR HEMOGLOBIN 33 pg (25-35); MEAN CORPUSCULAR HGB CONC 35 g/dL (31-37); MEAN CORPUSCULAR VOLUME 95 fL (79-100); MONO % 16 % (0-9); NEUT # 3.5 x10^3uL (1.8-7.7); NEUT % 60 % (31-73); PLATELET COUNT 201 x10^3/uL (140-400); RED BLOOD COUNT 3.75 x10^6/uL (4.30-5.70); WHITE BLOOD COUNT 5.8 x10^3/uL (4.0-11.0)
[2018-02-05 07:08] LABS: CALCIUM 8.6 mg/dL (8.5-10.1); CREATININE 1.4 mg/dL (0.7-1.3); GFR 59.6; MAGNESIUM 1.7 mg/dL (1.8-2.4); POTASSIUM 3.9 mmol/L (3.5-5.1)
--- NOTE | 2018-02-05 07:39 | PDOC ---
Infectious Disease Note Subjective Subjective pt is cont to have seizure no n/v/d/fever Vital Sign Vital Signs Vital Signs Date Time Temp Pulse Resp B/P (MAP) Pulse Ox O2 Delivery O2 Flow Rate FiO2 02/05/18 06:00 92 24 91/52 (65) 94 Nasal Cannula 5.0 02/05/18 04:00 99.2 99.2 Physical Exam PHYSICAL EXAM GENERAL: Lying down, calm, mitts HEENT: Pupils equally round and small. Oral cavity moist. Edentulous. NECK: Supple. LUNGS: Diminished aeration right lower lung romano. Nonlabored HEART: S1 and S2. ABDOMEN: Nondistended. Bowel sounds present. Soft. No grimace or guarding to palpation. EXTREMITIES: No gross edema or cyanosis. SKIN: Warm without rash. NEUROLOGIC: Arouses to name. PIV Labs Lab Laboratory Tests Test 02/05/18 06:30 White Blood Count 5.8 x10^3/uL (4.0-11.0) Red Blood Count 3.75 x10^6/uL (4.30-5.70) Hemoglobin 12.3 g/dL (13.0-17.5) Hematocrit 35.7 % (39.0-53.0) Mean Corpuscular Volume 95 fL (79-100) Mean Corpuscular Hemoglobin 33 pg (25-35) Mean Corpuscular Hemoglobin Concent 35 g/dL (31-37) Red Cell Distribution Width 13.0 % (11.5-14.5) Platelet Count 201 x10^3/uL (140-400) Neutrophils (%) (Auto) 60 % (31-73) Lymphocytes (%) (Auto) 21 % (24-48) Monocytes (%) (Auto) 16 % (0-9) Eosinophils (%) (Auto) 2 % (0-3) Basophils (%) (Auto) 1 % (0-3) Neutrophils # (Auto) 3.5 x10^3uL (1.8-7.7) Lymphocytes # (Auto) 1.2 x10^3/uL (1.0-4.8) Monocytes # (Auto) 1.0 x10^3/uL (0.0-1.1) Eosinophils # (Auto) 0.1 x10^3/uL (0.0-0.7) Basophils # (Auto) 0.0 x10^3/uL (0.0-0.2) Sodium Level 142 mmol/L (136-145) Potassium Level 3.9 mmol/L (3.5-5.1) Chloride Level 104 mmol/L (98-107) Carbon Dioxide Level 28 mmol/L (21-32) Anion Gap 10 (6-14) Blood Urea Nitrogen 10 mg/dL (8-26) Creatinine 1.4 mg/dL (0.7-1.3) Estimated GFR (Cockcroft-Gault) 59.6 Glucose Level 89 mg/dL (70-99) Calcium Level 8.6 mg/dL (8.5-10.1) Magnesium Level 1.7 mg/dL (1.8-2.4) Micro Microbiology 02/02/18 Blood Culture - Preliminary, Resulted NO GROWTH AFTER 1 DAY 02/01/18 Urine Culture - Preliminary, Resulted 02/01/18 Urine Culture Result 1 (BREN) - Preliminary, Resulted Objective Assessment 1. Complicated urinary tract infection present on admission. G neg frantz,, e coli 2. Bibasilar patchy opacities, possible aspiration. 3. Hypotension, responsive to IV fluids. 4. Seizure disorder, uncontrolled. 5. Excessive salivary excretion disorder. 6. SULFA ALLERGY. 7. Hypothyroidism. 8. Benign prostatic hypertrophy. 9. Dementia. 10. History of cerebrovascular accident. Plan Plan of Care Continue Zosyn Maintain aspiration precautions f/u cultures Monitor labs/temp Supportive care overall prognosis poor DNR/DNI D/w RN prognosis poor AMBER GONZALEZ MD Feb 05, 2018 07:39
[2018-02-05] MEDS: MORPHINE SULFATE 4 MG/ML VIAL. IV PRN ×2 (07:59→12:04)
[2018-02-05] MEDS: MEMANTINE 10 MG TABLET. PO SCH ×2 (08:00→21:00)
[2018-02-05] MEDS: LACTOBACILLUS RHAMNOSUS GG 1 CAPSULE. PO SCH ×2 (08:00→23:40)
[2018-02-05] MEDS: levETIRAcetam 1,000 MG in IV DEXTROSE 5% 100ML 100 ML IV SCH (08:00)
[2018-02-05] MEDS: FOLIC ACID 1 MG TABLET. PO SCH (08:00)
[2018-02-05] MEDS: MAGNESIUM SULFATE 4GM 100 ML IV SCH (08:00)
[2018-02-05] MEDS: MULTIVITAMIN with MINERAL TABLET. PO SCH (08:00)
[2018-02-05] MEDS: ASPIRIN CHEWABLE 81 MG TABLET. PO SCH (08:00)
[2018-02-05] MEDS: LACOSAMIDE 200 MG in IV DEXTROSE 5% 50 ML IV SCH ×2 (08:53→21:52)
--- NOTE | 2018-02-05 09:29 | PDOC ---
PULMONARY PROGRESS NOTES Subjective PT NOT IN DISTRESS CONTINUED SEIZER Vitals Vital Signs Date Time Temp Pulse Resp B/P (MAP) Pulse Ox O2 Delivery O2 Flow Rate FiO2 02/05/18 08:29 94 Nasal Cannula 5.0 02/05/18 06:00 92 24 91/52 (65) 02/05/18 04:00 99.2 99.2 Lungs: Clear Cardiovascular: S1, S2 Abdomen: Soft Skin: Warm Labs Laboratory Tests Test 02/03/18 12:42 02/04/18 07:12 02/05/18 06:30 White Blood Count 4.6 x10^3/uL (4.0-11.0) 6.9 x10^3/uL (4.0-11.0) 5.8 x10^3/uL (4.0-11.0) Red Blood Count 3.70 x10^6/uL (4.30-5.70) 3.78 x10^6/uL (4.30-5.70) 3.75 x10^6/uL (4.30-5.70) Hemoglobin 12.2 g/dL (13.0-17.5) 12.2 g/dL (13.0-17.5) 12.3 g/dL (13.0-17.5) Hematocrit 35.1 % (39.0-53.0) 36.4 % (39.0-53.0) 35.7 % (39.0-53.0) Mean Corpuscular Volume 95 fL (79-100) 96 fL (79-100) 95 fL (79-100) Mean Corpuscular Hemoglobin 33 pg (25-35) 32 pg (25-35) 33 pg (25-35) Mean Corpuscular Hemoglobin Concent 35 g/dL (31-37) 34 g/dL (31-37) 35 g/dL (31-37) Red Cell Distribution Width 13.0 % (11.5-14.5) 13.2 % (11.5-14.5) 13.0 % (11.5-14.5) Platelet Count 213 x10^3/uL (140-400) 209 x10^3/uL (140-400) 201 x10^3/uL (140-400) Neutrophils (%) (Auto) 62 % (31-73) 67 % (31-73) 60 % (31-73) Lymphocytes (%) (Auto) 21 % (24-48) 15 % (24-48) 21 % (24-48) Monocytes (%) (Auto) 15 % (0-9) 16 % (0-9) 16 % (0-9) Eosinophils (%) (Auto) 2 % (0-3) 1 % (0-3) 2 % (0-3) Basophils (%) (Auto) 1 % (0-3) 1 % (0-3) 1 % (0-3) Neutrophils # (Auto) 2.9 x10^3uL (1.8-7.7) 4.6 x10^3uL (1.8-7.7) 3.5 x10^3uL (1.8-7.7) Lymphocytes # (Auto) 1.0 x10^3/uL (1.0-4.8) 1.0 x10^3/uL (1.0-4.8) 1.2 x10^3/uL (1.0-4.8) Monocytes # (Auto) 0.7 x10^3/uL (0.0-1.1) 1.1 x10^3/uL (0.0-1.1) 1.0 x10^3/uL (0.0-1.1) Eosinophils # (Auto) 0.1 x10^3/uL (0.0-0.7) 0.1 x10^3/uL (0.0-0.7) 0.1 x10^3/uL (0.0-0.7) Basophils # (Auto) 0.0 x10^3/uL (0.0-0.2) 0.0 x10^3/uL (0.0-0.2) 0.0 x10^3/uL (0.0-0.2) Sodium Level 138 mmol/L (136-145) 139 mmol/L (136-145) 142 mmol/L (136-145) Potassium Level 3.5 mmol/L (3.5-5.1) 3.8 mmol/L (3.5-5.1) 3.9 mmol/L (3.5-5.1) Chloride Level 103 mmol/L (98-107) 103 mmol/L (98-107) 104 mmol/L (98-107) Carbon Dioxide Level 25 mmol/L (21-32) 25 mmol/L (21-32) 28 mmol/L (21-32) Anion Gap 10 (6-14) 11 (6-14) 10 (6-14) Blood Urea Nitrogen 12 mg/dL (8-26) 8 mg/dL (8-26) 10 mg/dL (8-26) Creatinine 1.3 mg/dL (0.7-1.3) 1.2 mg/dL (0.7-1.3) 1.4 mg/dL (0.7-1.3) Estimated GFR (Cockcroft-Gault) 64.9 71.2 59.6 BUN/Creatinine Ratio 9 (6-20) 7 (6-20) Glucose Level 85 mg/dL (70-99) 97 mg/dL (70-99) 89 mg/dL (70-99) Calcium Level 8.7 mg/dL (8.5-10.1) 8.6 mg/dL (8.5-10.1) 8.6 mg/dL (8.5-10.1) Total Bilirubin 0.6 mg/dL (0.2-1.0) 0.6 mg/dL (0.2-1.0) Aspartate Amino Transf (AST/SGOT) 20 U/L (15-37) 22 U/L (15-37) Alanine Aminotransferase (ALT/SGPT) 14 U/L (16-63) 15 U/L (16-63) Alkaline Phosphatase 73 U/L (46-116) 71 U/L (46-116) Total Protein 7.6 g/dL (6.4-8.2) 7.6 g/dL (6.4-8.2) Albumin 2.8 g/dL (3.4-5.0) 2.8 g/dL (3.4-5.0) Albumin/Globulin Ratio 0.6 (1.0-1.7) 0.6 (1.0-1.7) Magnesium Level 1.7 mg/dL (1.8-2.4) Laboratory Tests Test 02/05/18 06:30 White Blood Count 5.8 x10^3/uL (4.0-11.0) Red Blood Count 3.75 x10^6/uL (4.30-5.70) Hemoglobin 12.3 g/dL (13.0-17.5) Hematocrit 35.7 % (39.0-53.0) Mean Corpuscular Volume 95 fL (79-100) Mean Corpuscular Hemoglobin 33 pg (25-35) Mean Corpuscular Hemoglobin Concent 35 g/dL (31-37) Red Cell Distribution Width 13.0 % (11.5-14.5) Platelet Count 201 x10^3/uL (140-400) Neutrophils (%) (Auto) 60 % (31-73) Lymphocytes (%) (Auto) 21 % (24-48) Monocytes (%) (Auto) 16 % (0-9) Eosinophils (%) (Auto) 2 % (0-3) Basophils (%) (Auto) 1 % (0-3) Neutrophils # (Auto) 3.5 x10^3uL (1.8-7.7) Lymphocytes # (Auto) 1.2 x10^3/uL (1.0-4.8) Monocytes # (Auto) 1.0 x10^3/uL (0.0-1.1) Eosinophils # (Auto) 0.1 x10^3/uL (0.0-0.7) Basophils # (Auto) 0.0 x10^3/uL (0.0-0.2) Sodium Level 142 mmol/L (136-145) Potassium Level 3.9 mmol/L (3.5-5.1) Chloride Level 104 mmol/L (98-107) Carbon Dioxide Level 28 mmol/L (21-32) Anion Gap 10 (6-14) Blood Urea Nitrogen 10 mg/dL (8-26) Creatinine 1.4 mg/dL (0.7-1.3) Estimated GFR (Cockcroft-Gault) 59.6 Glucose Level 89 mg/dL (70-99) Calcium Level 8.6 mg/dL (8.5-10.1) Magnesium Level 1.7 mg/dL (1.8-2.4) Medications Active Scripts Medications Dose Route/Sig Max Daily Dose Days Date Category Vitamin D2 (Ergocalciferol (Vitamin D2)) 50,000 Unit Capsule 50,000 Unit PO QSA 02/01/18 Reported Guaifenesin 100 Mg/5 Ml Liquid 200 Mg PO PRN Q4HRS PRN 02/01/18 Reported Levetiracetam 750 Mg Tablet 750 Mg PO BID 02/01/18 Reported Memantine HCl 10 Mg Tablet 10 Mg PO BID 02/01/18 Reported Tylenol (Acetaminophen) 325 Mg Tablet 2 Tab PO PRN Q4HRS PRN 02/01/18 Reported Tamsulosin Hcl 0.4 Mg Cap.er.24h 1 Cap PO HS 11/27/13 Reported Multi-Vitamin Daily (Multivitamin) 1 Each Tablet 1 Each PO DAILY 11/27/13 Reported Levothyroxine Sodium 50 Mcg Tablet 1 Tab PO DAILY 11/27/13 Reported Hydrochlorothiazide Tablet (Hydrochlorothiazide) 12.5 Mg Tablet 1 Tab PO DAILY 11/27/13 Reported Folic Acid 1 Mg Tablet 1 Tab PO DAILY 11/27/13 Reported Donepezil Hcl 10 Mg Tablet 1 Tab PO HS 11/27/13 Reported Atropine Care (Atropine Sulfate) 5 Ml Drops 3 Drop SL BID 11/27/13 Reported Aspirin 81 Mg Tab.chew 1 Tab PO DAILY 11/27/13 Reported Impression . IMPRESSION: 1. Aspiration pneumonia. 2. Abnormal x-ray secondary to above. 3. Urinary tract infection. 4. Seizure disorder. 5. Dementia. 6. Previous cerebrovascular accident. 7. Hypotension, possible sepsis. 8. Status post OPTICS TECHNICAL OFFICER shunt placement. 9 SEIZER DISORDER Plan . D/W RN No change in mental status O2 N/C 4 liters continued seizures Palliative care consult JORGE LESLIE MD Feb 05, 2018 09:29
--- NOTE | 2018-02-05 10:38 | PDOC ---
IM PROGRESS NOTES- Subjective Subjective Not responsive. He was given phenobarbital earlier. Patient continues to have frequent seizures.Started on Morphine for pain control. Objective Vitals Vital Signs Date Time Temp Pulse Resp B/P (MAP) Pulse Ox O2 Delivery O2 Flow Rate FiO2 02/05/18 08:29 94 Nasal Cannula 5.0 02/05/18 06:00 92 24 91/52 (65) 02/05/18 04:00 99.2 99.2 Input & Output Intake and Output 02/05/18 07:01 Intake Total 653 ml Output Total 823 ml Balance -170 ml IV Total 110 ml Tube Feeding 443 ml Other 100 ml Output Urine Total 823 ml Gastric Drainage Total 0 ml Physical Exam Physical Exam GENERAL: The patient is not responsive. SKIN: Warm and dry. There is no cyanosis. NECK: Decreased range of motion. JVP normal. No thyromegaly. HEENT: Oral cavity: The patient has enlarged hypertrophied lips, especially the lower lips. LUNGS: Decreased breath sounds at bases. CARDIOVASCULAR: S1, S2 regular. ABDOMEN: Soft, nontender, bowel sounds present. EXTREMITIES: No edema. CENTRAL NERVOUS SYSTEM: is in status epilepticus.He has generalized weakness or residual deficits from previous CVA. Labs Laboratory Tests Test 02/03/18 12:42 02/04/18 07:12 02/05/18 06:30 White Blood Count 4.6 x10^3/uL (4.0-11.0) 6.9 x10^3/uL (4.0-11.0) 5.8 x10^3/uL (4.0-11.0) Red Blood Count 3.70 x10^6/uL (4.30-5.70) 3.78 x10^6/uL (4.30-5.70) 3.75 x10^6/uL (4.30-5.70) Hemoglobin 12.2 g/dL (13.0-17.5) 12.2 g/dL (13.0-17.5) 12.3 g/dL (13.0-17.5) Hematocrit 35.1 % (39.0-53.0) 36.4 % (39.0-53.0) 35.7 % (39.0-53.0) Mean Corpuscular Volume 95 fL (79-100) 96 fL (79-100) 95 fL (79-100) Mean Corpuscular Hemoglobin 33 pg (25-35) 32 pg (25-35) 33 pg (25-35) Mean Corpuscular Hemoglobin Concent 35 g/dL (31-37) 34 g/dL (31-37) 35 g/dL (31-37) Red Cell Distribution Width 13.0 % (11.5-14.5) 13.2 % (11.5-14.5) 13.0 % (11.5-14.5) Platelet Count 213 x10^3/uL (140-400) 209 x10^3/uL (140-400) 201 x10^3/uL (140-400) Neutrophils (%) (Auto) 62 % (31-73) 67 % (31-73) 60 % (31-73) Lymphocytes (%) (Auto) 21 % (24-48) 15 % (24-48) 21 % (24-48) Monocytes (%) (Auto) 15 % (0-9) 16 % (0-9) 16 % (0-9) Eosinophils (%) (Auto) 2 % (0-3) 1 % (0-3) 2 % (0-3) Basophils (%) (Auto) 1 % (0-3) 1 % (0-3) 1 % (0-3) Neutrophils # (Auto) 2.9 x10^3uL (1.8-7.7) 4.6 x10^3uL (1.8-7.7) 3.5 x10^3uL (1.8-7.7) Lymphocytes # (Auto) 1.0 x10^3/uL (1.0-4.8) 1.0 x10^3/uL (1.0-4.8) 1.2 x10^3/uL (1.0-4.8) Monocytes # (Auto) 0.7 x10^3/uL (0.0-1.1) 1.1 x10^3/uL (0.0-1.1) 1.0 x10^3/uL (0.0-1.1) Eosinophils # (Auto) 0.1 x10^3/uL (0.0-0.7) 0.1 x10^3/uL (0.0-0.7) 0.1 x10^3/uL (0.0-0.7) Basophils # (Auto) 0.0 x10^3/uL (0.0-0.2) 0.0 x10^3/uL (0.0-0.2) 0.0 x10^3/uL (0.0-0.2) Sodium Level 138 mmol/L (136-145) 139 mmol/L (136-145) 142 mmol/L (136-145) Potassium Level 3.5 mmol/L (3.5-5.1) 3.8 mmol/L (3.5-5.1) 3.9 mmol/L (3.5-5.1) Chloride Level 103 mmol/L (98-107) 103 mmol/L (98-107) 104 mmol/L (98-107) Carbon Dioxide Level 25 mmol/L (21-32) 25 mmol/L (21-32) 28 mmol/L (21-32) Anion Gap 10 (6-14) 11 (6-14) 10 (6-14) Blood Urea Nitrogen 12 mg/dL (8-26) 8 mg/dL (8-26) 10 mg/dL (8-26) Creatinine 1.3 mg/dL (0.7-1.3) 1.2 mg/dL (0.7-1.3) 1.4 mg/dL (0.7-1.3) Estimated GFR (Cockcroft-Gault) 64.9 71.2 59.6 BUN/Creatinine Ratio 9 (6-20) 7 (6-20) Glucose Level 85 mg/dL (70-99) 97 mg/dL (70-99) 89 mg/dL (70-99) Calcium Level 8.7 mg/dL (8.5-10.1) 8.6 mg/dL (8.5-10.1) 8.6 mg/dL (8.5-10.1) Total Bilirubin 0.6 mg/dL (0.2-1.0) 0.6 mg/dL (0.2-1.0) Aspartate Amino Transf (AST/SGOT) 20 U/L (15-37) 22 U/L (15-37) Alanine Aminotransferase (ALT/SGPT) 14 U/L (16-63) 15 U/L (16-63) Alkaline Phosphatase 73 U/L (46-116) 71 U/L (46-116) Total Protein 7.6 g/dL (6.4-8.2) 7.6 g/dL (6.4-8.2) Albumin 2.8 g/dL (3.4-5.0) 2.8 g/dL (3.4-5.0) Albumin/Globulin Ratio 0.6 (1.0-1.7) 0.6 (1.0-1.7) Magnesium Level 1.7 mg/dL (1.8-2.4) Laboratory Tests Test 02/05/18 06:30 White Blood Count 5.8 x10^3/uL (4.0-11.0) Red Blood Count 3.75 x10^6/uL (4.30-5.70) Hemoglobin 12.3 g/dL (13.0-17.5) Hematocrit 35.7 % (39.0-53.0) Mean Corpuscular Volume 95 fL (79-100) Mean Corpuscular Hemoglobin 33 pg (25-35) Mean Corpuscular Hemoglobin Concent 35 g/dL (31-37) Red Cell Distribution Width 13.0 % (11.5-14.5) Platelet Count 201 x10^3/uL (140-400) Neutrophils (%) (Auto) 60 % (31-73) Lymphocytes (%) (Auto) 21 % (24-48) Monocytes (%) (Auto) 16 % (0-9) Eosinophils (%) (Auto) 2 % (0-3) Basophils (%) (Auto) 1 % (0-3) Neutrophils # (Auto) 3.5 x10^3uL (1.8-7.7) Lymphocytes # (Auto) 1.2 x10^3/uL (1.0-4.8) Monocytes # (Auto) 1.0 x10^3/uL (0.0-1.1) Eosinophils # (Auto) 0.1 x10^3/uL (0.0-0.7) Basophils # (Auto) 0.0 x10^3/uL (0.0-0.2) Sodium Level 142 mmol/L (136-145) Potassium Level 3.9 mmol/L (3.5-5.1) Chloride Level 104 mmol/L (98-107) Carbon Dioxide Level 28 mmol/L (21-32) Anion Gap 10 (6-14) Blood Urea Nitrogen 10 mg/dL (8-26) Creatinine 1.4 mg/dL (0.7-1.3) Estimated GFR (Cockcroft-Gault) 59.6 Glucose Level 89 mg/dL (70-99) Calcium Level 8.6 mg/dL (8.5-10.1) Magnesium Level 1.7 mg/dL (1.8-2.4) Meds Current Medications Acetaminophen/ Hydrocodone Bitart (Lortab 7.5/325) 1 tab PRN Q4HRS PRN PO severe pain Last administered on 02/05/18at 02:27; Start 02/04/18 at 21:15 Magnesium Sulfate/ Dextrose 100 ml @ 50 mls/hr DAILY IV Last administered on 02/05/18at 08:00; Start 02/05/18 at 09:00; Stop 02/08/18 at 08:59 Morphine Sulfate (Morphine Sulfate) 2 mg PRN Q2HR PRN IV MODERATE PAIN; Start 02/05/18 at 06:30 Morphine Sulfate (Morphine Sulfate) 4 mg PRN Q2HR PRN IV SEVERE PAIN Last administered on 02/05/18at 07:59; Start 02/05/18 at 06:30 Phenobarbital (Luminal) 65 mg Q8HRS IVP Last administered on 02/05/18at 06:36; Start 02/04/18 at 14:00 Assessment Assessment 1. Seizure disorder, not controlled. 2. Urinary tract infection. 3. Hypertension. 4. Old cerebrovascular accident. 5. Dementia. 6. Osteoarthritis. 7. Benign prostatic hypertrophy. 8. Hypothyroidism. 9. Hypomagnesemia 10. Acute hypotension likely due to seizures and hypovolemia. PLAN: Keppra dose has been increased to [address] Ibarra for Neurology evaluation and management. Continue IV Rocephin and obtain urine culture. Check labs in a.m. including magnesium level. Continue seizure precautions. Prognosis of this patient is poor due to her multiple medical problems, CT scan of head showed large areas of encephalomalacia of the bilateral frontal lobes, also of the right temporal tip with cortical involvement. There is not new compared to the CAT scan in 2018. For details, please refer to the orders. Hypotension- continue IV fluids. Check for sepsis. Chest x-ray shows bibasilar opacities. Consult . Blood pressure is improving. I will also consult Dr. Solano. Feeding started. Continue IV Zosyn Hypoglycemia- Patient is not on any medications. Continue to monitor blood sugar. Hypomagnesemia- replace magnesium Malposition/? Malfunction of the DELIVERY TECHNICIAN shunt- is terminating and mediastinum. Consult Dr. Degroot for neurosurgical evaluation and management. Patient has not been seen by Dr. Fofana. Dr. Will mentions that patient had a shunt series but I do not see any order or reports for shunt series. This is discussed with the staff and she'll speak to Dr. Will. Recurrent seizures-patient is in status epilepticus. ot responding to meds. Prognosis of this patient is poor. Discussed with the patient's son Hugo on phone yesterdaycondition, treatment, options including intubation and induced coma, for seizure control but made them aware that he may be then difficult to extubate him. Palliative care in process,meeting tomorrow. Plan Plan For more details regarding further plans, please refer to the orders. Nutrition Consultation Dietary Evaluation: Comments: continue TF at this time Expected Outcomes/Goals: agressive treatments vs comfort measures Malnutrition Findings: Body Fat Depletion (Non Severe: Mild Depletion Weight Status: Underweight ROSALINDA NERI MD Feb 05, 2018 10:38
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
[2018-02-05 15:08] LABS: PHENOBARB 5.1 mcg/mL (15.0-40.0)
[2018-02-05] MEDS ORDERED: PHENobarbital 65 MG/ML VIAL. IVP STA (15:49)
[2018-02-05] MEDS ORDERED: IV NORMAL SALINE 1000ML BAG 1,000 ML IV ONE (18:45)
[2018-02-05] MEDS ORDERED: PROPOFOL 100 ML IV PRN (20:45)
[2018-02-05] MEDS ORDERED: SUCCINYLCHOLINE 200 MG/10 ML VIAL. ONE (20:51)
[2018-02-05] MEDS: levETIRAcetam 1,500 MG in IV DEXTROSE 5% 100ML 100 ML IV SCH (21:52)
[2018-02-05] MEDS ORDERED: SUCCINYLCHOLINE 200 MG/10 ML VIAL. IV ONE (22:00)
[2018-02-05] MEDS: MIDAZOLAM 100mg/100ml NS BAG 100 ML IV PRN (22:04)
--- NOTE | 2018-02-05 22:11 | RAD ---
Supine abdomen. HISTORY: OG tube placement Supine view was taken of the abdomen. There are mild infiltrates in the left lung base. There is a OG tube in the stomach in good position. No other change is noted. IMPRESSION: 1. Mild left basilar infiltrate. 2. Orogastric tube in the stomach in good position. Electronically signed by: Will Aguayo MD (02/05/2018 10:06 PM) [facility]
--- NOTE | 2018-02-05 22:12 | RAD ---
AP chest. HISTORY: Intubated AP view was taken of the chest. Endotracheal tube is in good position. There is an old healed right clavicle fracture. There are left basilar infiltrates with slight worsening compared to the recent study. IMPRESSION: 1. Endotracheal tube in good position. Electronically signed by: Will Aguayo MD (02/05/2018 10:08 PM) [facility]
[2018-02-05 23:17] LABS: BASE EXCESS ABG -5 mmol/L (-3-3); HCO3 ABG 21 mmol/L (21-28); PCO2 ABG 39 mmHg (35-46); PO2 ABG 126 mmHg (65-108); SAT O2 ABG 98 % (92-99)
[2018-02-05 23:18] LABS: FIO2 ABG 60
[2018-02-05] MEDS: IV NORMAL SALINE 1000ML BAG 1,000 ML IV PRN (23:39)
[2018-02-05] MEDS: DONEPEZIL HCL 10 MG TABLET. PO SCH (23:40)
[2018-02-06] VITALS (16 sets, daily range): BP systolic 79–115; BP diastolic 46–71
[2018-02-06] MEDS: PHENobarbital 65 MG/ML VIAL. IVP SCH ×3 (05:56→22:05)
[2018-02-06] MEDS: PIPERACILLIN/TAZOBACTAM 3.375 GM in IV NORMAL SALINE 50ML 50 ML IV SCH (05:56)
[2018-02-06] MEDS: LEVOTHYROXINE 50 MCG TABLET PO SCH (05:56)
[2018-02-06] MEDS: IV NORMAL SALINE 1000ML BAG 1,000 ML IV PRN (05:57)
--- NOTE | 2018-02-06 07:59 | RAD ---
Portable chest, 02/06/2018: HISTORY: Respiratory failure, intubation Comparison is made to yesterday's study. The ET tube tip lies approximately 8 cm above the brent. An NG tube extends into the stomach. There is an unchanged tube projected over the medial aspect of the right upper chest in the right mediastinum which may represent a ventricular shunt. The heart is within normal limits in size. Emphysematous changes are present in the lungs with scattered parenchymal scars. Left basilar infiltrates have worsened with increasing loss of definition of left hemidiaphragm. There is no evidence of pneumothorax or definite pleural fluid. IMPRESSION: Worsening left basilar infiltrate suggesting pneumonia. Electronically signed by: Benedicto Acosta MD (02/06/2018 7:55 AM) [facility]
[2018-02-06 08:26] LABS: BASE EXCESS ABG -4 mmol/L (-3-3); HCO3 ABG 21 mmol/L (21-28); PCO2 ABG 38 mmHg (35-46); PO2 ABG 156 mmHg (65-108); SAT O2 ABG 99 % (92-99)
[2018-02-06 08:53] LABS: FIO2 ABG 60
--- NOTE | 2018-02-06 08:55 | PDOC ---
Infectious Disease Note Subjective Subjective pt is intubated on vent no n/v/d/fever Vital Sign Vital Signs Vital Signs Date Time Temp Pulse Resp B/P (MAP) Pulse Ox O2 Delivery O2 Flow Rate FiO2 02/06/18 07:57 98 Ventilator 02/06/18 06:00 59 16 97/64 (75) 02/06/18 04:00 96.9 96.9 02/05/18 20:00 5.0 Physical Exam PHYSICAL EXAM GENERAL: intubated on vent HEENT: Pupils equally round and small. Oral cavity moist. Edentulous. NECK: Supple. LUNGS: Diminished aeration right lower lung romano. Nonlabored HEART: S1 and S2. ABDOMEN: Nondistended. Bowel sounds present. Soft. No grimace or guarding to palpation. EXTREMITIES: No gross edema or cyanosis. SKIN: Warm without rash. NEUROLOGIC: sedated on vent PIV Labs Lab Laboratory Tests Test 02/05/18 14:45 02/05/18 21:30 Phenobarbital Level 5.1 mcg/mL (15.0-40.0) Phenobarbital Last Dose Date Unk Phenobarbital Last Dose Time Unk O2 Saturation 98 % (92-99) Arterial Blood pH 7.34 (7.35-7.45) Arterial Blood pCO2 at Patient Temp 39 mmHg (35-46) Arterial Blood pO2 at Patient Temp 126 mmHg (65-108) Arterial Blood HCO3 21 mmol/L (21-28) Arterial Blood Base Excess -5 mmol/L (-3-3) FiO2 60 Micro Microbiology 02/02/18 Blood Culture - Preliminary, Resulted NO GROWTH AFTER 1 DAY 02/01/18 Urine Culture - Preliminary, Resulted 02/01/18 Urine Culture Result 1 (BREN) - Preliminary, Resulted Objective Assessment 1. Complicated urinary tract infection present on admission. G neg frantz,, e coli 2. Bibasilar patchy opacities, possible aspiration. 3. Hypotension, responsive to IV fluids. 4. Seizure disorder, uncontrolled. 5. Excessive salivary excretion disorder. 6. SULFA ALLERGY. 7. Hypothyroidism. 8. Benign prostatic hypertrophy. 9. Dementia. 10. History of cerebrovascular accident. Plan Plan of Care Continue Zosyn Maintain aspiration precautions f/u cultures Monitor labs/temp Supportive care D/w RN prognosis poor AMBER GONZALEZ MD Feb 06, 2018 08:55
--- NOTE | 2018-02-06 09:29 | PDOC ---
PULMONARY PROGRESS NOTES Subjective PT INTUBATED LAST EVENING SEC TO CONTINUE SEIZURES Vitals Vital Signs Date Time Temp Pulse Resp B/P (MAP) Pulse Ox O2 Delivery O2 Flow Rate FiO2 02/06/18 09:00 66 16 79/57 (64) 100 Ventilator 02/06/18 08:00 97.4 97.4 02/05/18 20:00 5.0 Lungs: Clear Cardiovascular: S1, S2 Abdomen: Soft Neuro Exam: Alert Extremities: No Edema Skin: Warm Labs Laboratory Tests Test 02/05/18 06:30 02/05/18 14:45 02/05/18 21:30 02/06/18 07:55 White Blood Count 5.8 x10^3/uL (4.0-11.0) Red Blood Count 3.75 x10^6/uL (4.30-5.70) Hemoglobin 12.3 g/dL (13.0-17.5) Hematocrit 35.7 % (39.0-53.0) Mean Corpuscular Volume 95 fL (79-100) Mean Corpuscular Hemoglobin 33 pg (25-35) Mean Corpuscular Hemoglobin Concent 35 g/dL (31-37) Red Cell Distribution Width 13.0 % (11.5-14.5) Platelet Count 201 x10^3/uL (140-400) Neutrophils (%) (Auto) 60 % (31-73) Lymphocytes (%) (Auto) 21 % (24-48) Monocytes (%) (Auto) 16 % (0-9) Eosinophils (%) (Auto) 2 % (0-3) Basophils (%) (Auto) 1 % (0-3) Neutrophils # (Auto) 3.5 x10^3uL (1.8-7.7) Lymphocytes # (Auto) 1.2 x10^3/uL (1.0-4.8) Monocytes # (Auto) 1.0 x10^3/uL (0.0-1.1) Eosinophils # (Auto) 0.1 x10^3/uL (0.0-0.7) Basophils # (Auto) 0.0 x10^3/uL (0.0-0.2) Sodium Level 142 mmol/L (136-145) Potassium Level 3.9 mmol/L (3.5-5.1) Chloride Level 104 mmol/L (98-107) Carbon Dioxide Level 28 mmol/L (21-32) Anion Gap 10 (6-14) Blood Urea Nitrogen 10 mg/dL (8-26) Creatinine 1.4 mg/dL (0.7-1.3) Estimated GFR (Cockcroft-Gault) 59.6 Glucose Level 89 mg/dL (70-99) Calcium Level 8.6 mg/dL (8.5-10.1) Magnesium Level 1.7 mg/dL (1.8-2.4) Phenobarbital Level 5.1 mcg/mL (15.0-40.0) Phenobarbital Last Dose Date Unk Phenobarbital Last Dose Time Unk O2 Saturation 98 % (92-99) 99 % (92-99) Arterial Blood pH 7.34 (7.35-7.45) 7.36 (7.35-7.45) Arterial Blood pCO2 at Patient Temp 39 mmHg (35-46) 38 mmHg (35-46) Arterial Blood pO2 at Patient Temp 126 mmHg (65-108) 156 mmHg (65-108) Arterial Blood HCO3 21 mmol/L (21-28) 21 mmol/L (21-28) Arterial Blood Base Excess -5 mmol/L (-3-3) -4 mmol/L (-3-3) FiO2 60 60 Laboratory Tests Test 02/05/18 14:45 02/05/18 21:30 02/06/18 07:55 Phenobarbital Level 5.1 mcg/mL (15.0-40.0) Phenobarbital Last Dose Date Unk Phenobarbital Last Dose Time Unk O2 Saturation 98 % (92-99) 99 % (92-99) Arterial Blood pH 7.34 (7.35-7.45) 7.36 (7.35-7.45) Arterial Blood pCO2 at Patient Temp 39 mmHg (35-46) 38 mmHg (35-46) Arterial Blood pO2 at Patient Temp 126 mmHg (65-108) 156 mmHg (65-108) Arterial Blood HCO3 21 mmol/L (21-28) 21 mmol/L (21-28) Arterial Blood Base Excess -5 mmol/L (-3-3) -4 mmol/L (-3-3) FiO2 60 60 Medications Active Scripts Medications Dose Route/Sig Max Daily Dose Days Date Category Vitamin D2 (Ergocalciferol (Vitamin D2)) 50,000 Unit Capsule 50,000 Unit PO QSA 02/01/18 Reported Guaifenesin 100 Mg/5 Ml Liquid 200 Mg PO PRN Q4HRS PRN 02/01/18 Reported Levetiracetam 750 Mg Tablet 750 Mg PO BID 02/01/18 Reported Memantine HCl 10 Mg Tablet 10 Mg PO BID 02/01/18 Reported Tylenol (Acetaminophen) 325 Mg Tablet 2 Tab PO PRN Q4HRS PRN 02/01/18 Reported Tamsulosin Hcl 0.4 Mg Cap.er.24h 1 Cap PO HS 11/27/13 Reported Multi-Vitamin Daily (Multivitamin) 1 Each Tablet 1 Each PO DAILY 11/27/13 Reported Levothyroxine Sodium 50 Mcg Tablet 1 Tab PO DAILY 11/27/13 Reported Hydrochlorothiazide Tablet (Hydrochlorothiazide) 12.5 Mg Tablet 1 Tab PO DAILY 11/27/13 Reported Folic Acid 1 Mg Tablet 1 Tab PO DAILY 11/27/13 Reported Donepezil Hcl 10 Mg Tablet 1 Tab PO HS 11/27/13 Reported Atropine Care (Atropine Sulfate) 5 Ml Drops 3 Drop SL BID 11/27/13 Reported Aspirin 81 Mg Tab.chew 1 Tab PO DAILY 11/27/13 Reported Impression . IMPRESSION: 1. Aspiration pneumonia. 2. Abnormal x-ray secondary to above. 3. Urinary tract infection. 4. Seizure disorder. 5. Dementia. 6. Previous cerebrovascular accident. 7. Hypotension, possible sepsis. 8. Status post [employer] shunt placement. 9 SEIZURES DISORDER/ACUTE RESP FAILURE Plan . INTUBATED LAST BARBARA NOW ON VERSED CONVERSATION WITH PAT PALLIATIVE CARE PT FAMILY WISHES TO PROCEED WITH PALLIATIVE CARE I CONCUR WILL MAINTAIN ON VERSED POST INTUBATION FOR SEIZURES CONTROL JORGE LESLIE MD Feb 06, 2018 09:29
[2018-02-06] MEDS: ASPIRIN CHEWABLE 81 MG TABLET. PO SCH (09:38)
[2018-02-06] MEDS: LACOSAMIDE 200 MG in IV DEXTROSE 5% 50 ML IV SCH ×2 (09:38→22:05)
[2018-02-06] MEDS: MULTIVITAMIN with MINERAL TABLET. PO SCH (09:38)
[2018-02-06] MEDS: FOLIC ACID 1 MG TABLET. PO SCH (09:38)
[2018-02-06] MEDS: levETIRAcetam 1,500 MG in IV DEXTROSE 5% 100ML 100 ML IV SCH ×2 (09:38→22:05)
[2018-02-06] MEDS: MEMANTINE 10 MG TABLET. PO SCH (09:38)
[2018-02-06] MEDS: LACTOBACILLUS RHAMNOSUS GG 1 CAPSULE. PO SCH (09:40)
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
--- NOTE | 2018-02-06 09:54 | PDOC ---
IM PROGRESS NOTES- Subjective Subjective Family decided to pursue aggressive care yesterday evening and the patient was started on Versed drip and is intubated now. However his blood pressure remains very low. Yesterday he was given IV boluses of normal saline and was started on IV normal saline. Urine output remains low. Patient is sedated and unable to do systems review. Objective Vitals Vital Signs Date Time Temp Pulse Resp B/P (MAP) Pulse Ox O2 Delivery O2 Flow Rate FiO2 02/06/18 09:00 66 16 79/57 (64) 100 Ventilator 02/06/18 08:00 97.4 97.4 02/05/18 20:00 5.0 Input & Output Intake and Output 02/06/18 07:01 Intake Total 2329 ml Output Total 580 ml Balance 1749 ml IV Total 2289 ml Tube Feeding 40 ml Output Urine Total 580 ml Gastric Drainage Total 0 ml Physical Exam Physical Exam GENERAL: The patient is not responsive. Sedated on mechanical ventilation. SKIN: Warm and dry. There is no cyanosis. NECK: Decreased range of motion. JVP normal. No thyromegaly. HEENT: Oral cavity: The patient has enlarged hypertrophied lips, especially the lower lips. LUNGS: Decreased breath sounds at bases. CARDIOVASCULAR: S1, S2 regular. ABDOMEN: Soft, nontender, bowel sounds present. EXTREMITIES: No edema. CENTRAL NERVOUS SYSTEM: Sedated no seizures noted..He has generalized weakness or residual deficits from previous CVA. Labs Laboratory Tests Test 02/05/18 06:30 02/05/18 14:45 02/05/18 21:30 02/06/18 07:55 White Blood Count 5.8 x10^3/uL (4.0-11.0) Red Blood Count 3.75 x10^6/uL (4.30-5.70) Hemoglobin 12.3 g/dL (13.0-17.5) Hematocrit 35.7 % (39.0-53.0) Mean Corpuscular Volume 95 fL (79-100) Mean Corpuscular Hemoglobin 33 pg (25-35) Mean Corpuscular Hemoglobin Concent 35 g/dL (31-37) Red Cell Distribution Width 13.0 % (11.5-14.5) Platelet Count 201 x10^3/uL (140-400) Neutrophils (%) (Auto) 60 % (31-73) Lymphocytes (%) (Auto) 21 % (24-48) Monocytes (%) (Auto) 16 % (0-9) Eosinophils (%) (Auto) 2 % (0-3) Basophils (%) (Auto) 1 % (0-3) Neutrophils # (Auto) 3.5 x10^3uL (1.8-7.7) Lymphocytes # (Auto) 1.2 x10^3/uL (1.0-4.8) Monocytes # (Auto) 1.0 x10^3/uL (0.0-1.1) Eosinophils # (Auto) 0.1 x10^3/uL (0.0-0.7) Basophils # (Auto) 0.0 x10^3/uL (0.0-0.2) Sodium Level 142 mmol/L (136-145) Potassium Level 3.9 mmol/L (3.5-5.1) Chloride Level 104 mmol/L (98-107) Carbon Dioxide Level 28 mmol/L (21-32) Anion Gap 10 (6-14) Blood Urea Nitrogen 10 mg/dL (8-26) Creatinine 1.4 mg/dL (0.7-1.3) Estimated GFR (Cockcroft-Gault) 59.6 Glucose Level 89 mg/dL (70-99) Calcium Level 8.6 mg/dL (8.5-10.1) Magnesium Level 1.7 mg/dL (1.8-2.4) Phenobarbital Level 5.1 mcg/mL (15.0-40.0) Phenobarbital Last Dose Date Unk Phenobarbital Last Dose Time Unk O2 Saturation 98 % (92-99) 99 % (92-99) Arterial Blood pH 7.34 (7.35-7.45) 7.36 (7.35-7.45) Arterial Blood pCO2 at Patient Temp 39 mmHg (35-46) 38 mmHg (35-46) Arterial Blood pO2 at Patient Temp 126 mmHg (65-108) 156 mmHg (65-108) Arterial Blood HCO3 21 mmol/L (21-28) 21 mmol/L (21-28) Arterial Blood Base Excess -5 mmol/L (-3-3) -4 mmol/L (-3-3) FiO2 60 60 Laboratory Tests Test 02/05/18 14:45 02/05/18 21:30 02/06/18 07:55 Phenobarbital Level 5.1 mcg/mL (15.0-40.0) Phenobarbital Last Dose Date Unk Phenobarbital Last Dose Time Unk O2 Saturation 98 % (92-99) 99 % (92-99) Arterial Blood pH 7.34 (7.35-7.45) 7.36 (7.35-7.45) Arterial Blood pCO2 at Patient Temp 39 mmHg (35-46) 38 mmHg (35-46) Arterial Blood pO2 at Patient Temp 126 mmHg (65-108) 156 mmHg (65-108) Arterial Blood HCO3 21 mmol/L (21-28) 21 mmol/L (21-28) Arterial Blood Base Excess -5 mmol/L (-3-3) -4 mmol/L (-3-3) FiO2 60 60 Meds Current Medications Dopamine HCl/ Dextrose 250 ml @ 5.342 mls/ hr CONT PRN IV SEE I/O RECORD; Start 02/06/18 at 10:00 Levetiracetam 1500 mg/Dextrose 115 ml @ 440 mls/hr Q12HR IV Last administered on 02/06/18at 09:38; Start 02/05/18 at 21:00 Midazolam HCl 100 ml @ 0 mls/hr CONT PRN IV SEE PROTOCOL Last administered on 02/05/18at 22:04; Start 02/05/18 at 21:45 Phenobarbital (Luminal) 100 mg 1X STAT IVP Last administered on 02/05/18at 18: 08; Start 02/05/18 at 15:49; Stop 02/05/18 at 15:55; Status DC Phenobarbital (Luminal) 130 mg Q8HRS IVP Last administered on 02/06/18at 05:56 ; Start 02/05/18 at 22:00 Propofol 100 ml @ 0 mls/hr CONT PRN IV SEE PROTOCOL; Start 02/05/18 at 20:45 Sodium Chloride 500 ml @ 500 mls/hr 1X ONCE IV ; Start 02/06/18 at 10:00; Stop 02/06/18 at 10:59 Sodium Chloride 1,000 ml @ 150 mls/hr Q6H40M PRN IV TKO Last administered on at 05:57; Start 02/05/18 at 18:30 Sodium Chloride 1,000 ml @ 1,000 mls/hr 1X ONCE IV ; Start 02/05/18 at 18:45 ; Stop 02/05/18 at 19:44; Status DC Succinylcholine Chloride (Anectine) 100 mg 1X ONCE IV Last administered on at 20:58; Start 02/05/18 at 22:00; Stop 02/05/18 at 22:01; Status DC Succinylcholine Chloride (Anectine) 200 mg STK-MED ONCE .ROUTE ; Start at 20:51; Stop 02/05/18 at 20:53; Status DC Assessment Assessment 1. Seizure disorder, not controlled. 2. Urinary tract infection. 3. Hypertension. 4. Old cerebrovascular accident. 5. Dementia. 6. Osteoarthritis. 7. Benign prostatic hypertrophy. 8. Hypothyroidism. 9. Hypomagnesemia 10. Acute hypotension likely due to seizures and hypovolemia. PLAN: Keppra dose has been increased to [address] Ibarra for Neurology evaluation and management. Continue IV Rocephin and obtain urine culture. Check labs in a.m. including magnesium level. Continue seizure precautions. Prognosis of this patient is poor due to her multiple medical problems, CT scan of head showed large areas of encephalomalacia of the bilateral frontal lobes, also of the right temporal tip with cortical involvement. There is not new compared to the CAT scan in 2018. For details, please refer to the orders. Hypotension- continue IV fluids. This is worse. Start IV dopamine. Order EKG. Labs ordered yesterday evening were not recorded so I will reorder labs this morning. Consult socially responsible investment adviser. IV normal saline bolus. Complicated Escherichia coli UTI- I will also consult Dr. Solano. Feeding started. Continue IV Zosyn Hypoglycemia- Patient is not on any medications. Continue to monitor blood sugar. 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 Consult Dr. Degroot for neurosurgical evaluation and management. Patient has not been seen by Dr. Fofana. Dr. Will mentions that patient had a shunt series but I do not see any order or reports for shunt series. This is discussed with the staff and she'll speak to Dr. Will. Status epilepticus- in addition treatment discussed with patient's 2 sons at bedside. They decided yesterday evening to go proceed with MRI of the brain and the aggressive care. Patient is now intubated. He is on Versed drip. Prognosis remains poor. Discussed with the patient's son Hugo on phone yesterdaycondition, treatment, options including intubation and induced coma, for seizure control but made them aware that he may be then difficult to extubate him. Palliative care meeting this morning. Plan Plan For more details regarding further plans, please refer to the orders. Nutrition Consultation Dietary Evaluation: Comments: continue TF at this time Expected Outcomes/Goals: agressive treatments vs comfort measures Malnutrition Findings: Body Fat Depletion (Non Severe: Mild Depletion Weight Status: Underweight ROSALINDA NERI MD Feb 06, 2018 09:54
--- NOTE | 2018-02-06 09:56 | EKG ---
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
[2018-02-06] MEDS ORDERED: IV NORMAL SALINE 500ML BAG 500 ML IV ONE (10:00)
[2018-02-06 10:48] LABS: BASO % 0 % (0-3); EOS # 0.1 x10^3/uL (0.0-0.7); EOS % 2 % (0-3); HEMATOCRIT 31.3 % (39.0-53.0); HEMOGLOBIN 10.7 g/dL (13.0-17.5); LYMPH # 1.1 x10^3/uL (1.0-4.8); LYMPH % 19 % (24-48); MEAN CORPUSCULAR HEMOGLOBIN 33 pg (25-35); MEAN CORPUSCULAR HGB CONC 34 g/dL (31-37); MEAN CORPUSCULAR VOLUME 97 fL (79-100); MONO # 1.1 x10^3/uL (0.0-1.1); MONO % 19 % (0-9); NEUT # 3.5 x10^3uL (1.8-7.7); NEUT % 61 % (31-73); PLATELET COUNT 192 x10^3/uL (140-400); RED BLOOD COUNT 3.22 x10^6/uL (4.30-5.70); RED CELL DISTRIBUTION WIDTH 13.3 % (11.5-14.5); WHITE BLOOD COUNT 5.7 x10^3/uL (4.0-11.0)
[2018-02-06 10:55] LABS: CALCIUM 8.1 mg/dL (8.5-10.1); CREATININE 1.2 mg/dL (0.7-1.3); GFR 71.2; POTASSIUM 3.5 mmol/L (3.5-5.1)
[2018-02-06 11:01] LABS: ALBUMIN/GLOBULIN RATIO 0.5 (1.0-1.7); MAGNESIUM 2.1 mg/dL (1.8-2.4); TOTAL BILIRUBIN 0.4 mg/dL (0.2-1.0); TOTAL PROTEIN 6.4 g/dL (6.4-8.2)
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
[2018-02-06] MEDS: MAGNESIUM SULFATE 4GM 100 ML IV SCH (14:32)
[2018-02-06] MEDS: MIDAZOLAM 100mg/100ml NS BAG 100 ML IV PRN (18:05)
[2018-02-07 04:00] VITALS: BP 90/52
[2018-02-07] MEDS: PHENobarbital 65 MG/ML VIAL. IVP SCH ×3 (05:53→21:33)
[2018-02-07 08:00] VITALS: BP 100/54
[2018-02-07] MEDS: levETIRAcetam 1,500 MG in IV DEXTROSE 5% 100ML 100 ML IV SCH ×2 (09:42→21:26)
--- NOTE | 2018-02-07 10:16 | PDOC ---
IM PROGRESS NOTES- Subjective Subjective Family decided to pursue aggressive care yesterday evening and the patient was started on Versed drip and is off ventilator.. However his blood pressure remains very low. He is not responsive at this time. Objective Vitals Vital Signs Date Time Temp Pulse Resp B/P (MAP) Pulse Ox O2 Delivery O2 Flow Rate FiO2 02/07/18 08:30 94 Nasal Cannula 3.0 02/07/18 04:00 96.5 81 20 90/52 (65) 96.5 Input & Output Intake and Output 02/07/18 07:01 Intake Total 804.56 ml Output Total 440 ml Balance 364.56 ml IV Total 804.56 ml Output Urine Total 440 ml Physical Exam Physical Exam GENERAL: The patient is not responsive. Sedated SKIN: Warm and dry. There is no cyanosis. NECK: Decreased range of motion. JVP normal. No thyromegaly. HEENT: Oral cavity: The patient has enlarged hypertrophied lips, especially the lower lips. LUNGS: Decreased breath sounds at bases. CARDIOVASCULAR: S1, S2 regular. ABDOMEN: Soft, nontender, bowel sounds present. EXTREMITIES: No edema. CENTRAL NERVOUS SYSTEM: Sedated no seizures noted. Labs Laboratory Tests Test 02/05/18 14:45 02/05/18 21:30 02/06/18 07:55 02/06/18 10:30 Phenobarbital Level 5.1 mcg/mL (15.0-40.0) Phenobarbital Last Dose Date Unk Phenobarbital Last Dose Time Unk O2 Saturation 98 % (92-99) 99 % (92-99) Arterial Blood pH 7.34 (7.35-7.45) 7.36 (7.35-7.45) Arterial Blood pCO2 at Patient Temp 39 mmHg (35-46) 38 mmHg (35-46) Arterial Blood pO2 at Patient Temp 126 mmHg (65-108) 156 mmHg (65-108) Arterial Blood HCO3 21 mmol/L (21-28) 21 mmol/L (21-28) Arterial Blood Base Excess -5 mmol/L (-3-3) -4 mmol/L (-3-3) FiO2 60 60 White Blood Count 5.7 x10^3/uL (4.0-11.0) Red Blood Count 3.22 x10^6/uL (4.30-5.70) Hemoglobin 10.7 g/dL (13.0-17.5) Hematocrit 31.3 % (39.0-53.0) Mean Corpuscular Volume 97 fL (79-100) Mean Corpuscular Hemoglobin 33 pg (25-35) Mean Corpuscular Hemoglobin Concent 34 g/dL (31-37) Red Cell Distribution Width 13.3 % (11.5-14.5) Platelet Count 192 x10^3/uL (140-400) Neutrophils (%) (Auto) 61 % (31-73) Lymphocytes (%) (Auto) 19 % (24-48) Monocytes (%) (Auto) 19 % (0-9) Eosinophils (%) (Auto) 2 % (0-3) Basophils (%) (Auto) 0 % (0-3) Neutrophils # (Auto) 3.5 x10^3uL (1.8-7.7) Lymphocytes # (Auto) 1.1 x10^3/uL (1.0-4.8) Monocytes # (Auto) 1.1 x10^3/uL (0.0-1.1) Eosinophils # (Auto) 0.1 x10^3/uL (0.0-0.7) Basophils # (Auto) 0.0 x10^3/uL (0.0-0.2) Sodium Level 143 mmol/L (136-145) Potassium Level 3.5 mmol/L (3.5-5.1) Chloride Level 107 mmol/L (98-107) Carbon Dioxide Level 25 mmol/L (21-32) Anion Gap 11 (6-14) Blood Urea Nitrogen 14 mg/dL (8-26) Creatinine 1.2 mg/dL (0.7-1.3) Estimated GFR (Cockcroft-Gault) 71.2 BUN/Creatinine Ratio 12 (6-20) Glucose Level 104 mg/dL (70-99) Calcium Level 8.1 mg/dL (8.5-10.1) Magnesium Level 2.1 mg/dL (1.8-2.4) Total Bilirubin 0.4 mg/dL (0.2-1.0) Aspartate Amino Transf (AST/SGOT) 27 U/L (15-37) Alanine Aminotransferase (ALT/SGPT) 15 U/L (16-63) Alkaline Phosphatase 46 U/L (46-116) Total Protein 6.4 g/dL (6.4-8.2) Albumin 2.0 g/dL (3.4-5.0) Albumin/Globulin Ratio 0.5 (1.0-1.7) Laboratory Tests Test 02/06/18 10:30 White Blood Count 5.7 x10^3/uL (4.0-11.0) Red Blood Count 3.22 x10^6/uL (4.30-5.70) Hemoglobin 10.7 g/dL (13.0-17.5) Hematocrit 31.3 % (39.0-53.0) Mean Corpuscular Volume 97 fL (79-100) Mean Corpuscular Hemoglobin 33 pg (25-35) Mean Corpuscular Hemoglobin Concent 34 g/dL (31-37) Red Cell Distribution Width 13.3 % (11.5-14.5) Platelet Count 192 x10^3/uL (140-400) Neutrophils (%) (Auto) 61 % (31-73) Lymphocytes (%) (Auto) 19 % (24-48) Monocytes (%) (Auto) 19 % (0-9) Eosinophils (%) (Auto) 2 % (0-3) Basophils (%) (Auto) 0 % (0-3) Neutrophils # (Auto) 3.5 x10^3uL (1.8-7.7) Lymphocytes # (Auto) 1.1 x10^3/uL (1.0-4.8) Monocytes # (Auto) 1.1 x10^3/uL (0.0-1.1) Eosinophils # (Auto) 0.1 x10^3/uL (0.0-0.7) Basophils # (Auto) 0.0 x10^3/uL (0.0-0.2) Sodium Level 143 mmol/L (136-145) Potassium Level 3.5 mmol/L (3.5-5.1) Chloride Level 107 mmol/L (98-107) Carbon Dioxide Level 25 mmol/L (21-32) Anion Gap 11 (6-14) Blood Urea Nitrogen 14 mg/dL (8-26) Creatinine 1.2 mg/dL (0.7-1.3) Estimated GFR (Cockcroft-Gault) 71.2 BUN/Creatinine Ratio 12 (6-20) Glucose Level 104 mg/dL (70-99) Calcium Level 8.1 mg/dL (8.5-10.1) Magnesium Level 2.1 mg/dL (1.8-2.4) Total Bilirubin 0.4 mg/dL (0.2-1.0) Aspartate Amino Transf (AST/SGOT) 27 U/L (15-37) Alanine Aminotransferase (ALT/SGPT) 15 U/L (16-63) Alkaline Phosphatase 46 U/L (46-116) Total Protein 6.4 g/dL (6.4-8.2) Albumin 2.0 g/dL (3.4-5.0) Albumin/Globulin Ratio 0.5 (1.0-1.7) Meds Current Medications Fentanyl Citrate 30 ml @ 0 mls/hr CONT PRN PRN IV PER PROTOCOL Last administered on 02/07/18at 08:30; Start 02/06/18 at 12:00 Assessment Assessment 1. Seizure disorder, not controlled. 2. Urinary tract infection. 3. Hypertension. 4. Old cerebrovascular accident. 5. Dementia. 6. Osteoarthritis. 7. Benign prostatic hypertrophy. 8. Hypothyroidism. 9. Hypomagnesemia 10. Acute hypotension likely due to seizures and hypovolemia. PLAN: Keppra dose has been increased to [address] Ibarra for Neurology evaluation and management. Continue IV Rocephin and obtain urine culture. Check labs in a.m. including magnesium level. Continue seizure precautions. Prognosis of this patient is poor due to her multiple medical problems, CT scan of head showed large areas of encephalomalacia of the bilateral frontal lobes, also of the right temporal tip with cortical involvement. There is not new compared to the CAT scan in 2018. For details, please refer to the orders. Hypotension- continue IV fluids. This is worse. Start IV dopamine. Order EKG. Labs ordered yesterday evening were not recorded so I will reorder labs this morning. Consult mingle operator. IV normal saline bolus. Complicated Escherichia coli UTI- I will also consult Dr. Solano. Feeding started. Continue IV Zosyn Hypoglycemia- Patient is not on any medications. Continue to monitor blood sugar. 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 Consult Dr. Degroot for neurosurgical evaluation and management. Patient has not been seen by Dr. Fofana. Dr. Will mentions that patient had a shunt series but I do not see any order or reports for shunt series. This is discussed with the staff and she'll speak to Dr. Will. Status epilepticus- family decided to proceed with comfort care. Patient was extubated. He is on IV Versed drip. Seizures are controlled. Plan Plan For more details regarding further plans, please refer to the orders. Nutrition Consultation Dietary Evaluation: Comments: continue TF at this time Expected Outcomes/Goals: agressive treatments vs comfort measures Malnutrition Findings: Body Fat Depletion (Non Severe: Mild Depletion Weight Status: Underweight ROSALINDA NERI MD Feb 07, 2018 10:16
[2018-02-07] MEDS: LACOSAMIDE 200 MG in IV DEXTROSE 5% 50 ML IV SCH ×2 (10:23→21:28)
[2018-02-07] MEDS ORDERED: MORPHINE SULFATE 4 MG/ML VIAL. IV PRN ×2 (12:00)
--- NOTE | 2018-02-07 12:25 | PDOC2 ---
PALLIATIVE CARE Palliative Care Note Palliative Care Spoke with Julissa x-/DPOA. She is in agreement with plan for comfort care and IP Hospice evaluation. She would like patient to go to IP Hospice. Beth Arias and Rubin are assisting with communication and decision making [place]. Milena VELARDE will assist with discharge plan. ARTURO MORTENSEN Feb 07, 2018 12:25
[2018-02-07] MEDS ORDERED: MIDAZOLAM 100mg/100ml NS BAG 100 ML IV PRN (12:45)
--- NOTE | 2018-02-07 15:36 | PDOC ---
PROGRESS NOTES Assessment Epilepsy,seizures controlled on 3 anticonvulsants and midazolam Plan Patient is on comfort care, I realize this is very unusual to have the patient on midazolam and extubated, but this is for comfort care and indeed the patient has been seizure-free. Family is planning to take him to a hospice house if he does not in the next few hours. Fully discussed with patient's family. Subjective None Objective Vital Signs Date Time Temp Pulse Resp B/P (MAP) Pulse Ox O2 Delivery O2 Flow Rate FiO2 02/07/18 10:23 18 94 Nasal Cannula 3.0 02/07/18 08:00 98.1 84 100/54 (69) 98.1 Intake and Output 02/07/18 07:01 Intake Total 804.56 ml Output Total 440 ml Balance 364.56 ml IV Total 804.56 ml Output Urine Total 440 ml PHYSICAL EXAM Extubated, some loud snoring when IV was beeping, otherwise appears peaceful Review of Relevant I have reviewed the following items [place] (where applicable) has been applied. Labs Laboratory Tests Test 02/05/18 21:30 02/06/18 07:55 02/06/18 10:30 O2 Saturation 98 % (92-99) 99 % (92-99) Arterial Blood pH 7.34 (7.35-7.45) 7.36 (7.35-7.45) Arterial Blood pCO2 at Patient Temp 39 mmHg (35-46) 38 mmHg (35-46) Arterial Blood pO2 at Patient Temp 126 mmHg (65-108) 156 mmHg (65-108) Arterial Blood HCO3 21 mmol/L (21-28) 21 mmol/L (21-28) Arterial Blood Base Excess -5 mmol/L (-3-3) -4 mmol/L (-3-3) FiO2 60 60 White Blood Count 5.7 x10^3/uL (4.0-11.0) Red Blood Count 3.22 x10^6/uL (4.30-5.70) Hemoglobin 10.7 g/dL (13.0-17.5) Hematocrit 31.3 % (39.0-53.0) Mean Corpuscular Volume 97 fL (79-100) Mean Corpuscular Hemoglobin 33 pg (25-35) Mean Corpuscular Hemoglobin Concent 34 g/dL (31-37) Red Cell Distribution Width 13.3 % (11.5-14.5) Platelet Count 192 x10^3/uL (140-400) Neutrophils (%) (Auto) 61 % (31-73) Lymphocytes (%) (Auto) 19 % (24-48) Monocytes (%) (Auto) 19 % (0-9) Eosinophils (%) (Auto) 2 % (0-3) Basophils (%) (Auto) 0 % (0-3) Neutrophils # (Auto) 3.5 x10^3uL (1.8-7.7) Lymphocytes # (Auto) 1.1 x10^3/uL (1.0-4.8) Monocytes # (Auto) 1.1 x10^3/uL (0.0-1.1) Eosinophils # (Auto) 0.1 x10^3/uL (0.0-0.7) Basophils # (Auto) 0.0 x10^3/uL (0.0-0.2) Sodium Level 143 mmol/L (136-145) Potassium Level 3.5 mmol/L (3.5-5.1) Chloride Level 107 mmol/L (98-107) Carbon Dioxide Level 25 mmol/L (21-32) Anion Gap 11 (6-14) Blood Urea Nitrogen 14 mg/dL (8-26) Creatinine 1.2 mg/dL (0.7-1.3) Estimated GFR (Cockcroft-Gault) 71.2 BUN/Creatinine Ratio 12 (6-20) Glucose Level 104 mg/dL (70-99) Calcium Level 8.1 mg/dL (8.5-10.1) Magnesium Level 2.1 mg/dL (1.8-2.4) Total Bilirubin 0.4 mg/dL (0.2-1.0) Aspartate Amino Transf (AST/SGOT) 27 U/L (15-37) Alanine Aminotransferase (ALT/SGPT) 15 U/L (16-63) Alkaline Phosphatase 46 U/L (46-116) Total Protein 6.4 g/dL (6.4-8.2) Albumin 2.0 g/dL (3.4-5.0) Albumin/Globulin Ratio 0.5 (1.0-1.7) Microbiology 02/02/18 Blood Culture - Final, Complete NO GROWTH AFTER 5 DAYS 02/01/18 Urine Culture - Final, Complete 12/21/18 Urine Culture Result 1 (BREN) - Final, Complete 02/01/18 Antimicrobic Susceptibility - Final, Complete Medications Current Medications Lorazepam (Ativan) 1 mg 1X ONCE IV Last administered on 02/01/18at 09:38; Start 02/01/18 at 09:45; Stop 02/01/18 at 09:46; Status DC Lorazepam (Ativan) 2 mg STK-MED ONCE .ROUTE ; Start 02/01/18 at 09:35; Stop at 09:36; Status DC Ceftriaxone Sodium (Rocephin) 1 gm 1X ONCE IVP Last administered on at 12:27; Start 02/01/18 at 11:45; Stop 02/01/18 at 11:46; Status DC Levetiracetam 1000 mg/Dextrose 110 ml @ 440 mls/hr 1X ONCE IV ; Start at 12:00; Stop 02/01/18 at 12:00; Status DC Ondansetron HCl (Zofran) 4 mg PRN Q8HRS PRN IV NAUSEA/VOMITING; Start at 12:30; Stop 02/02/18 at 12:29; Status DC Lorazepam (Ativan) 1 mg 1X ONCE IV Last administered on 02/01/18at 13:21; Start 02/01/18 at 13:30; Stop 02/01/18 at 13:31; Status DC Levetiracetam (Keppra) 1,000 mg BID PO Last administered on 02/01/18at 21:17; Start 02/01/18 at 21:00; Stop 02/02/18 at 11:55; Status DC Ceftriaxone Sodium (Rocephin) 1 gm Q24H IVP ; Start 02/02/18 at 12:00; Stop at 12:00; Status DC Acetaminophen (Tylenol) 650 mg PRN Q4HRS PRN PO MILD PAIN / TEMP Last administered on 02/01/18at 21:17; Start 02/01/18 at 17:30; Stop 02/06/18 at 12 :01; Status DC Aspirin (Children'S Aspirin) 81 mg DAILY PO Last administered on 02/06/18at 09: 38; Start 02/02/18 at 09:00; Stop 02/06/18 at 12:01; Status DC Folic Acid (Folic Acid) 1 mg DAILY PO Last administered on 02/06/18at 09:38; Start 02/02/18 at 09:00; Stop 02/06/18 at 12:01; Status DC Tamsulosin HCl (Flomax) 0.4 mg HS PO Last administered on 02/01/18at 21:17; Start 02/01/18 at 21:00; Stop 02/02/18 at 08:02; Status DC Donepezil HCl (Aricept) 10 mg QHS PO Last administered on 02/05/18at 23:40; Start 02/01/18 at 21:00; Stop 02/06/18 at 12:01; Status DC Hydrochlorothiazide (Microzide) 12.5 mg DAILY PO ; Start 02/02/18 at 09:00; Stop 02/02/18 at 09:00; Status DC Levothyroxine Sodium (Synthroid) 50 mcg DAILY06 PO Last administered on at 05:56; Start 02/02/18 at 06:00; Stop 02/06/18 at 12:01; Status DC Memantine (Namenda) 10 mg BID PO Last administered on 02/06/18at 09:38; Start 02/01/18 at 21:00; Stop 02/06/18 at 12:01; Status DC Multivitamins (Thera M Plus) 1 tab DAILY PO Last administered on 02/06/18at 09: 38; Start 02/02/18 at 09:00; Stop 02/06/18 at 12:01; Status DC Sodium Chloride 500 ml @ 0 mls/hr 1X ONCE IV Last administered on 02/01/18at 20:45; Start 02/01/18 at 20:45; Stop 02/01/18 at 20:46; Status DC Sodium Chloride 1,000 ml @ 100 mls/hr Q10H IV Last administered on 02/02/18at 18:09; Start 02/01/18 at 20:45; Stop 02/03/18 at 08:14; Status DC Lacosamide 100 mg/ Dextrose 60 ml @ 120 mls/hr 1X ONCE IV Last administered on 02/02/18at 03:56; Start 02/02/18 at 04:00; Stop 02/02/18 at 04:29; Status DC Lacosamide 100 mg/ Dextrose 60 ml @ 120 mls/hr BID IV Last administered on at 08:45; Start 02/02/18 at 09:00; Stop 02/03/18 at 14:35; Status DC Sodium Chloride 250 ml @ 250 mls/hr 1X ONCE IV ; Start 02/02/18 at 04:00; Stop 02/02/18 at 04:59; Status DC Lactobacillus Rhamnosus (Culturelle) 1 cap BID PO Last administered on at 23:40; Start 02/02/18 at 09:00; Stop 02/06/18 at 12:01; Status DC Magnesium Sulfate 50 ml @ 25 mls/hr 1X ONCE IV Last administered on at 16:19; Start 02/02/18 at 11:30; Stop 02/02/18 at 13:29; Status DC Piperacillin Sod/ Tazobactam Sod 3.375 gm/Sodium Chloride 50 ml @ 100 mls/hr Q6HRS IV Last administered on 02/06/18at 05:56; Start 02/02/18 at 12:00; Stop 02/06/18 at 12:01; Status DC Levetiracetam 1000 mg/Dextrose 110 ml @ 440 mls/hr Q12HR IV Last administered on 02/05/18at 08:00; Start 02/02/18 at 12:00; Stop 02/05/18 at 13:52; Status DC Lacosamide 150 mg/ Dextrose 65 ml @ 120 mls/hr BID IV Last administered on at 22:18; Start 02/03/18 at 21:00; Stop 02/04/18 at 06:04; Status DC Lacosamide 200 mg/ Dextrose 70 ml @ 140 mls/hr BID IV Last administered on at 10:23; Start 02/04/18 at 07:00 Phenobarbital (Luminal) 100 mg 1X ONCE IVP Last administered on 02/04/18at 07: 48; Start 02/04/18 at 07:30; Stop 02/04/18 at 07:39; Status DC Phenobarbital (Luminal) 65 mg Q8HRS IVP Last administered on 02/05/18at 14:49; Start 02/04/18 at 14:00; Stop 02/05/18 at 15:51; Status DC Acetaminophen/ Hydrocodone Bitart (Lortab 7.5/325) 1 tab PRN Q4HRS PRN PO severe pain Last administered on 02/05/18at 02:27; Start 02/04/18 at 21:15; Stop 02/06/18 at 12:01; Status DC Morphine Sulfate (Morphine Sulfate) 4 mg PRN Q2HR PRN IV SEVERE PAIN Last administered on 02/05/18at 12:04; Start 02/05/18 at 06:30; Stop 02/06/18 at 21 :53; Status DC Morphine Sulfate (Morphine Sulfate) 2 mg PRN Q2HR PRN IV MODERATE PAIN; Start 02/05/18 at 06:30; Stop 02/06/18 at 21:53; Status DC Magnesium Sulfate/ Dextrose 100 ml @ 50 mls/hr DAILY IV Last administered on 02/05/18at 08:00; Start 02/05/18 at 09:00; Stop 02/06/18 at 12:01; Status DC Levetiracetam 1500 mg/Dextrose 115 ml @ 440 mls/hr Q12HR IV Last administered on 02/07/18at 09:42; Start 02/05/18 at 21:00 Phenobarbital (Luminal) 130 mg Q8HRS IVP Last administered on 02/07/18at 14:59 ; Start 02/05/18 at 22:00 Phenobarbital (Luminal) 100 mg 1X STAT IVP Last administered on 02/05/18at 18: 08; Start 02/05/18 at 15:49; Stop 02/05/18 at 15:55; Status DC Sodium Chloride 1,000 ml @ 150 mls/hr Q6H40M PRN IV TKO Last administered on at 05:57; Start 02/05/18 at 18:30; Stop 02/06/18 at 12:01; Status DC Sodium Chloride 1,000 ml @ 1,000 mls/hr 1X ONCE IV ; Start 02/05/18 at 18:45 ; Stop 02/05/18 at 19:44; Status DC Propofol 100 ml @ 0 mls/hr CONT PRN IV SEE PROTOCOL; Start 02/05/18 at 20:45; Stop 02/06/18 at 12:01; Status DC Succinylcholine Chloride (Anectine) 200 mg STK-MED ONCE .ROUTE ; Start at 20:51; Stop 02/05/18 at 20:53; Status DC Midazolam HCl 100 ml @ 0 mls/hr CONT PRN IV SEE PROTOCOL Last administered on 02/06/18at 18:05; Start 02/05/18 at 21:45; Stop 02/07/18 at 11:52; Status DC Succinylcholine Chloride (Anectine) 100 mg 1X ONCE IV Last administered on at 20:58; Start 02/05/18 at 22:00; Stop 02/05/18 at 22:01; Status DC Sodium Chloride 500 ml @ 500 mls/hr 1X ONCE IV Last administered on at 09:51; Start 02/06/18 at 10:00; Stop 02/06/18 at 10:59; Status DC Dopamine HCl/ Dextrose 250 ml @ 5.342 mls/ hr CONT PRN IV SEE I/O RECORD; Start 02/06/18 at 10:00; Stop 02/06/18 at 12:01; Status DC Fentanyl Citrate 30 ml @ 0 mls/hr CONT PRN PRN IV PER PROTOCOL Last administered on 02/07/18at 08:30; Start 02/06/18 at 12:00 Morphine Sulfate (Morphine Sulfate) 2 mg PRN Q2HR PRN IV PAIN; Start 02/07/18 at 12:00 Morphine Sulfate (Morphine Sulfate) 4 mg PRN Q2HR PRN IV PAIN; Start 02/07/18 at 12:00 Midazolam HCl 100 ml @ 0 mls/hr CONT PRN IV SEE PROTOCOL Last administered on 02/07/18at 15:05; Start 02/07/18 at 12:45 Active Scripts Active Reported Vitamin D2 (Ergocalciferol (Vitamin D2)) 50,000 Unit Capsule 50,000 Unit PO QSA Guaifenesin 100 Mg/5 Ml Liquid 200 Mg PO PRN Q4HRS PRN Levetiracetam 750 Mg Tablet 750 Mg PO BID Memantine HCl 10 Mg Tablet 10 Mg PO BID Tylenol (Acetaminophen) 325 Mg Tablet 2 Tab PO PRN Q4HRS PRN Tamsulosin Hcl 0.4 Mg Cap.er.24h 1 Cap PO HS Multi-Vitamin Daily (Multivitamin) 1 Each Tablet 1 Each PO DAILY Levothyroxine Sodium 50 Mcg Tablet 1 Tab PO DAILY Hydrochlorothiazide Tablet (Hydrochlorothiazide) 12.5 Mg Tablet 1 Tab PO DAILY Folic Acid 1 Mg Tablet 1 Tab PO DAILY Donepezil Hcl 10 Mg Tablet 1 Tab PO HS Atropine Care (Atropine Sulfate) 5 Ml Drops 3 Drop SL BID Aspirin 81 Mg Tab.chew 1 Tab PO DAILY Vitals/I & O Vital Sign - Last 24 Hours 02/06/18 02/06/18 02/06/18 02/06/18 16:00 20:00 20:00 23:59 Temp 97.4 98.7 97.8 97.4 98.7 97.8 Pulse 69 72 81 Resp 20 21 B/P (MAP) 102/60 (74) 88/59 (69) 105/64 (78) Pulse Ox 99 99 96 O2 Delivery Nasal Cannula Nasal Cannula Nasal Cannula Nasal Cannula O2 Flow Rate 3.0 3.0 3.0 3.0 02/07/18 02/07/18 02/07/18 02/07/18 04:00 08:00 08:00 08:30 Temp 96.5 98.1 96.5 98.1 Pulse 81 84 Resp 20 18 B/P (MAP) 90/52 (65) 100/54 (69) Pulse Ox 94 98 94 O2 Delivery Nasal Cannula Nasal Cannula Nasal Cannula Nasal Cannula O2 Flow Rate 3.0 3.0 3.0 3.0 02/07/18 10:23 Resp 18 Pulse Ox 94 O2 Delivery Nasal Cannula O2 Flow Rate 3.0 Intake and Output 02/06/18 02/06/18 02/07/18 15:01 23:01 07:01 Intake Total 685 ml 58.56 ml 61 ml Output Total 145 ml 110 ml 185 ml Balance 540 ml -51.44 ml -124 ml OLU VILLAVICENCIO MD Feb 07, 2018 15:36
[2018-02-08] MEDS: PHENobarbital 65 MG/ML VIAL. IVP SCH (05:51)
== END 2018-02-08 05:10 | disposition expired | DRG 208 ==
LOC: ER 09:17 → 6 SOUTH 12:18 → 1 WEST ICU 02-02 04:13 → 6 SOUTH 02-07 11:50
PROVIDERS: ADMIT Internal Medicine; ATTEND Internal Medicine
PROC: 5A1935Z Respiratory Ventilation, Less than 24 Consecutive Hours (ICD-10-PCS; principal; 2018-02-07)
PROC: 0BH17EZ Insertion of Endotracheal Airway into Trachea, Via Natural or Artificial Opening (ICD-10-PCS; 2018-02-07)
DX: J69.0 Pneumonitis due to inhalation of food and vomit (principal); G93.41 Metabolic encephalopathy; J96.00 Acute respiratory failure, unspecified whether with hypoxia or hypercapnia; N39.0 Urinary tract infection, site not specified; E03.9 Hypothyroidism, unspecified; E83.42 Hypomagnesemia; E86.1 Hypovolemia; F03.90 Unspecified dementia, unspecified severity, without behavioral disturbance, psychotic disturbance, mood disturbance, and anxiety; G40.909 Epilepsy, unspecified, not intractable, without status epilepticus; G93.89 Other specified disorders of brain; I10 Essential (primary) hypertension; M19.90 Unspecified osteoarthritis, unspecified site; N40.0 Benign prostatic hyperplasia without lower urinary tract symptoms; Z86.73 Personal history of transient ischemic attack (TIA), and cerebral infarction without residual deficits; Z87.891 Personal history of nicotine dependence; Z88.2 Allergy status to sulfonamides; Z98.2 Presence of cerebrospinal fluid drainage device; Z87.828 Personal history of other (healed) physical injury and trauma
CPT/HCPCS: 36415; 36600; 70250; 70450; 71045; 71046; 74018; 80048; 80053; 80177; 80184; 81001; 82550; 82553; 82607; 82805; 82962; 83605; 83735; 84443; 84484; 85007; 85025; 85610; 85730; 87040; 87086; 87641; 93005; 94002; 94003; 94760; 95816; 96374; 96375; 96376; C9254; J0330; J0696; J1953; J2060; J2250; J2270; J2543; J2560; J3010; J3475; J7030; J7040; 99285-25